=== PATIENT | male | born 1960 | race Caucasian/White ===

== ENCOUNTER → 2017-10-06 | Outpatient (CLI) | payer OTHER ==
[~2017-10-06] MED LIST: ADAL40KI SC; BACL-19 PO; CETI10TA24 PO; FOLI-17 PO; LEVO112T4 PO; LEVO25TA2 PO; LORA-446 PO; LOSA1TAB19 PO; OMEP-110 PO; OXYC1TAB7 PO; PREG75CA PO; SERT25TA PO; THIA100T10 PO
[2017-10-06 12:52] LABS: ALBUMIN 3.7 g/dL (3.4-5.0); BILIRUBIN, DIRECT 0.1 mg/dL (0.1-0.2)
[2017-10-06 12:58] LABS: BILIRUBIN,INDIRECT 0.4 mg/dL (0.0-2.0); BILIRUBIN,TOTAL 0.5 mg/dL (0.2-1.0); CHOL/HDL RATIO 5.2; LDL/HDL RATIO 3.4 (0.5-3.0); TOTAL PROTEIN 8.2 g/dL (6.4-8.2)
== END | disposition home or self-care (01) ==
LOC: CFH 07:04
PROVIDERS: ATTEND Physician Assistant
DX: K76.89 Other specified diseases of liver (principal); E03.9 Hypothyroidism, unspecified; L40.59 Other psoriatic arthropathy; G62.9 Polyneuropathy, unspecified; E55.9 Vitamin D deficiency, unspecified; K90.41 Non-celiac gluten sensitivity; K21.9 Gastro-esophageal reflux disease without esophagitis; M54.9 Dorsalgia, unspecified; M79.673 Pain in unspecified foot; R79.9 Abnormal finding of blood chemistry, unspecified; E78.5 Hyperlipidemia, unspecified; D69.8 Other specified hemorrhagic conditions
CPT/HCPCS: 36415; 76700; 80061; 80076; 82105; 82390; 82728; 83540; 83550; 84466; 86704; 86706; 86708; 86803; 87340

== ENCOUNTER 2018-08-18 14:14 | Inpatient (IN) | payer OTHER ==
[~2018-08-18] VITALS: Ht 190.5 cm; Wt 75.1 kg
[~2018-08-18 14:14] MED LIST changes: +OMEP20TA62 PO; +TAMS-11 PO; +THIA100T67 PO; +THYR15TA PO; +THYR30TA PO
[2018-08-19] MEDS ORDERED: OXYcodone IR 5MG TABLET PO ONE (00:50)
[2018-08-19 01:08] VITALS: BP 108/77
[2018-08-19] MEDS ORDERED: hydrALAzine 20 MG/ML, 1ML IVPush PRN (01:30)
[2018-08-19] MEDS ORDERED: MELATONIN 3 MG TABLET PO ONE (02:00)
[2018-08-19] MEDS: PANTOPRAZOLE 20MG TABLET PO SCH (05:57)
[2018-08-19] MEDS: LEVOTHYROXINE 25 MCG TABLET PO SCH (05:57)
[2018-08-19 07:40] VITALS: BP 125/86
[2018-08-19] MEDS: THIAMINE 100MG TABLET PO SCH (08:31)
[2018-08-19] MEDS: TAMSULOSIN 0.4 MG CAP.ER.24H PO SCH (08:31)
[2018-08-19] MEDS: ENOXAPARIN 40 MG/0.4 ML SQ SCH (08:32)
[2018-08-19] MEDS: BENZTROPINE 1 MG TABLET PO SCH ×2 (08:32→22:04)
[2018-08-19] MEDS ORDERED: OXYcodone/APAP 5/325MG TABLET PO SCH ×2 (09:00→21:00)
[2018-08-19 15:14] VITALS: BP 115/78
[2018-08-19] MEDS ORDERED: MAGNESIUM CITRATE 300ML ORAL SOL PO PRN (16:30)
[2018-08-19] MEDS: BISACODYL 10 MG SUPP PR PRN (16:45)
[2018-08-19] MEDS: OXYcodone/APAP 5/325MG TABLET PO PRN ×2 (16:45→22:05)
[2018-08-19] MEDS: POLYETHYLENE GLYCOL 17 GM PACKET PO PRN (16:45)
[2018-08-19 18:26] VITALS: BP 106/75
[2018-08-19] MEDS: MELATONIN 3 MG TABLET PO SCH (22:04)
[2018-08-20 00:37] VITALS: BP 119/76
[2018-08-20] MEDS: PANTOPRAZOLE 20MG TABLET PO SCH (05:52)
[2018-08-20] MEDS: LEVOTHYROXINE 25 MCG TABLET PO SCH (05:53)
[2018-08-20 05:57] LABS: MEAN CORPUSCULAR HEMOGLOBIN 34.8 pg (27.5-34.5); MEAN CORPUSCULAR HGB CONC 34.4 g/dL (33.2-36.2); MEAN CORPUSCULAR VOLUME 101.2 fL (81-97); MEAN PLATELET VOLUME 12.1 fL (7.4-10.4); PLATELET COUNT 218 x10^3/uL (130-400); RED BLOOD COUNT 3.94 x10^6/uL (4.38-5.82)
[2018-08-20 05:59] LABS: ALANINE AMINOTRANSFERASE 68 U/L (12-78); ANION GAP 8 mmol/L (5-15); CALCIUM 9.2 mg/dL (8.5-10.1); CHLORIDE 112 mmol/L (98-107)
[2018-08-20 06:02] LABS: ALKALINE PHOSPHATASE 89 U/L (45-117); BILIRUBIN,TOTAL 1.5 mg/dL (0.2-1.0); CREATININE 0.92 mg/dL (0.7-1.3); TOTAL PROTEIN 9.2 g/dL (6.4-8.2)
[2018-08-20 06:26] LABS: BASOPHILS # (AUTO) 0.01 x10^3/uL (0-0.1); BASOPHILS % (AUTO) 0 % (0-1); EOSINOPHILS # (AUTO) 0.15 x10^3/uL (0-0.4); EOSINOPHILS % (AUTO) 1 % (1-7); LYMPHOCYTES # (AUTO) 1.28 x10^3/uL (1-3.4); LYMPHOCYTES % (AUTO) 12 % (22-44); MD SCAN; MONOCYTES # (AUTO) 1.51 x10^3/uL (0.2-0.8); MONOCYTES % (AUTO) 14 % (2-9); NEUTROPHILS # (AUTO) 8.19 x10^3/uL (1.8-6.8); NEUTROPHILS % (AUTO) 74 % (42-75)
[2018-08-20 07:19] VITALS: BP 109/74
[2018-08-20 09:09] LABS: FOLATE LEVEL 7.4 ng/mL (3.1-17.5)
[2018-08-20 09:22] LABS: FREE T4 (FREE THYROXINE) 1.48 ng/dL (0.76-1.46)
[2018-08-20] MEDS: THIAMINE 100MG TABLET PO SCH (10:08)
[2018-08-20] MEDS: TAMSULOSIN 0.4 MG CAP.ER.24H PO SCH (10:08)
[2018-08-20] MEDS: BENZTROPINE 1 MG TABLET PO SCH ×2 (10:08→21:45)
[2018-08-20] MEDS: ENOXAPARIN 40 MG/0.4 ML SQ SCH (10:08)
[2018-08-20 14:24] VITALS: BP 116/87
[2018-08-20] MEDS: OXYcodone/APAP 5/325MG TABLET PO PRN (17:58)
[2018-08-20 19:55] VITALS: BP 133/84
[2018-08-20] MEDS: MELATONIN 3 MG TABLET PO SCH (21:45)
[2018-08-21 01:25] VITALS: BP 162/72
[2018-08-21] MEDS: OXYcodone/APAP 5/325MG TABLET PO PRN ×2 (04:52→16:47)
[2018-08-21] MEDS: PANTOPRAZOLE 20MG TABLET PO SCH (04:52)
[2018-08-21] MEDS: LEVOTHYROXINE 25 MCG TABLET PO SCH (04:52)
[2018-08-21 06:49] VITALS: BP 118/76
[2018-08-21] MEDS: D5%-0.9% NACL+KCL 20MEQ 1,000 ML IV SCH ×2 (09:38→19:58)
[2018-08-21] MEDS: ENOXAPARIN 40 MG/0.4 ML SQ SCH (09:38)
[2018-08-21] MEDS: THIAMINE 100MG TABLET PO SCH (09:39)
[2018-08-21] MEDS: TAMSULOSIN 0.4 MG CAP.ER.24H PO SCH (09:39)
[2018-08-21] MEDS: BENZTROPINE 1 MG TABLET PO SCH ×2 (09:39→19:59)
[2018-08-21 12:27] VITALS: BP 113/80
[2018-08-21] MEDS ORDERED: KETOROLAC 30 MG/1 ML ONE (12:59)
[2018-08-21] MEDS: KETOROLAC 30 MG/1 ML IVPush PRN ×2 (13:01→19:58)
[2018-08-21 16:48] VITALS: BP 113/80
[2018-08-21 19:19] VITALS: BP 102/71
[2018-08-21] MEDS: MELATONIN 3 MG TABLET PO SCH (19:59)
[2018-08-22] MEDS ORDERED: LORazepam 2 MG/ML, 1ML ONE (00:24)
[2018-08-22] MEDS ORDERED: LORazepam 2 MG/ML, 1ML IVPush ONE (00:30)
[2018-08-22] MEDS: KETOROLAC 30 MG/1 ML IVPush PRN ×3 (02:29→19:42)
[2018-08-22 03:03] VITALS: BP 110/74
[2018-08-22] MEDS: OXYcodone/APAP 5/325MG TABLET PO PRN ×2 (04:16→16:19)
[2018-08-22] MEDS: D5%-0.9% NACL+KCL 20MEQ 1,000 ML IV SCH ×2 (05:34→16:19)
[2018-08-22 07:17] VITALS: BP 112/73
[2018-08-22] MEDS: LEVOTHYROXINE 50 MCG TABLET PO SCH (08:50)
[2018-08-22] MEDS: TAMSULOSIN 0.4 MG CAP.ER.24H PO SCH (08:50)
[2018-08-22] MEDS: THIAMINE 100MG TABLET PO SCH (08:50)
[2018-08-22] MEDS: BENZTROPINE 1 MG TABLET PO SCH ×2 (08:50→19:43)
[2018-08-22] MEDS: PANTOPRAZOLE 20MG TABLET PO SCH (08:50)
[2018-08-22] MEDS: ENOXAPARIN 40 MG/0.4 ML SQ SCH (08:56)
[2018-08-22] MEDS: LORazepam 2 MG/ML, 1ML IVPush PRN ×2 (13:02→23:05)
[2018-08-22 13:52] VITALS: BP 162/77
[2018-08-22] MEDS: PLEASE ENTER HEIGHT AND WEIGHT MC SCH ×2 (14:56→19:43)
[2018-08-22] MEDS: MELATONIN 3 MG TABLET PO SCH (19:43)
[2018-08-22 19:55] VITALS: BP 155/73
[2018-08-23] MEDS: D5%-0.9% NACL+KCL 20MEQ 1,000 ML IV SCH ×3 (01:06→22:58)
[2018-08-23] MEDS: KETOROLAC 30 MG/1 ML IVPush PRN ×3 (01:06→21:57)
[2018-08-23 01:52] VITALS: BP 148/98
[2018-08-23] MEDS: OXYcodone/APAP 5/325MG TABLET PO PRN ×2 (03:05→15:20)
[2018-08-23 04:56] LABS: MEAN CORPUSCULAR HEMOGLOBIN 34.3 pg (27.5-34.5); MEAN CORPUSCULAR HGB CONC 33.5 g/dL (33.2-36.2); MEAN CORPUSCULAR VOLUME 102.5 fL (81-97); RED CELL DISTRIBUTION WIDTH 15.6 % (9.4-14.8)
[2018-08-23 04:58] LABS: ALBUMIN 2.2 g/dL (3.4-5.0); ANION GAP 8 mmol/L (5-15); CALCIUM 8.1 mg/dL (8.5-10.1); CHLORIDE 116 mmol/L (98-107); CREATININE 0.68 mg/dL (0.7-1.3)
[2018-08-23] MEDS: PANTOPRAZOLE 20MG TABLET PO SCH (05:22)
[2018-08-23] MEDS: LEVOTHYROXINE 50 MCG TABLET PO SCH (05:22)
[2018-08-23 06:07] LABS: MEAN PLATELET VOLUME 12.7 fL (7.4-10.4); PLATELET COUNT 158 x10^3/uL (130-400)
[2018-08-23 06:09] LABS: BASOPHILS # (AUTO) 0.02 x10^3/uL (0-0.1); BASOPHILS % (AUTO) 0 % (0-1); EOSINOPHILS # (AUTO) 0.46 x10^3/uL (0-0.4); EOSINOPHILS % (AUTO) 6 % (1-7); LYMPHOCYTES # (AUTO) 1.38 x10^3/uL (1-3.4); LYMPHOCYTES % (AUTO) 19 % (22-44); MD SCAN; MONOCYTES # (AUTO) 0.86 x10^3/uL (0.2-0.8); MONOCYTES % (AUTO) 12 % (2-9); NEUTROPHILS # (AUTO) 4.59 x10^3/uL (1.8-6.8); NEUTROPHILS % (AUTO) 63 % (42-75)
[2018-08-23] MEDS: PLEASE ENTER HEIGHT AND WEIGHT MC SCH ×2 (07:00→15:00)
[2018-08-23 07:21] VITALS: BP 148/96
[2018-08-23] MEDS ORDERED: MAGNESIUM SULF. PMX 20GM/500ML 500 ML IV PRN (08:00)
[2018-08-23] MEDS: TAMSULOSIN 0.4 MG CAP.ER.24H PO SCH (08:57)
[2018-08-23] MEDS: ENOXAPARIN 40 MG/0.4 ML SQ SCH (08:57)
[2018-08-23] MEDS: THIAMINE 100MG TABLET PO SCH (08:57)
[2018-08-23] MEDS ORDERED: MAGNESIUM SULFATE PMX 2GM/50ML 50 ML IV ONE (09:30)
[2018-08-23] MEDS: LORazepam 2 MG/ML, 1ML IVPush PRN ×2 (12:12→22:58)
[2018-08-23 14:00] VITALS: BP 128/87
[2018-08-23 19:41] VITALS: BP 134/95
[2018-08-23] MEDS: MELATONIN 3 MG TABLET PO SCH (20:11)
[2018-08-24 02:29] VITALS: BP 149/92
[2018-08-24] MEDS: OXYcodone/APAP 5/325MG TABLET PO PRN ×2 (03:24→20:00)
[2018-08-24] MEDS: PANTOPRAZOLE 20MG TABLET PO SCH (06:14)
[2018-08-24] MEDS: KETOROLAC 30 MG/1 ML IVPush PRN ×3 (06:14→22:21)
[2018-08-24] MEDS: LEVOTHYROXINE 50 MCG TABLET PO SCH (06:14)
[2018-08-24 07:05] VITALS: BP 145/91
[2018-08-24] MEDS: THIAMINE 100MG TABLET PO SCH (09:24)
[2018-08-24] MEDS: TAMSULOSIN 0.4 MG CAP.ER.24H PO SCH (09:24)
[2018-08-24] MEDS: ENOXAPARIN 40 MG/0.4 ML SQ SCH (09:25)
[2018-08-24] MEDS: LORazepam 2 MG/ML, 1ML IVPush PRN (10:12)
[2018-08-24] MEDS: D5%-0.9% NACL+KCL 20MEQ 1,000 ML IV SCH ×2 (11:28→21:22)
[2018-08-24 12:59] VITALS: BP 127/88
[2018-08-24 19:36] VITALS: BP 108/69
[2018-08-24] MEDS: MELATONIN 3 MG TABLET PO SCH (19:56)
[2018-08-25] MEDS: LORazepam 2 MG/ML, 1ML IVPush PRN ×2 (00:04→15:45)
[2018-08-25 01:10] VITALS: BP 166/69
[2018-08-25] MEDS: KETOROLAC 30 MG/1 ML IVPush PRN ×2 (04:36→13:08)
[2018-08-25] MEDS: LEVOTHYROXINE 50 MCG TABLET PO SCH (05:29)
[2018-08-25] MEDS: PANTOPRAZOLE 20MG TABLET PO SCH (05:30)
[2018-08-25] MEDS ORDERED: MAGNESIUM SULFATE PMX 2GM/50ML 50 ML IV ONE (07:00)
[2018-08-25 07:18] VITALS: BP 147/95
[2018-08-25] MEDS: ENOXAPARIN 40 MG/0.4 ML SQ SCH (08:00)
[2018-08-25] MEDS: OXYcodone/APAP 5/325MG TABLET PO PRN ×2 (08:00→19:27)
[2018-08-25] MEDS: THIAMINE 100MG TABLET PO SCH (08:00)
[2018-08-25] MEDS: TAMSULOSIN 0.4 MG CAP.ER.24H PO SCH (08:00)
[2018-08-25] MEDS: D5%-0.9% NACL+KCL 20MEQ 1,000 ML IV SCH ×2 (08:00→18:03)
[2018-08-25 12:59] VITALS: BP 141/95
[2018-08-25 19:10] VITALS: BP 132/90
[2018-08-25] MEDS: MELATONIN 3 MG TABLET PO SCH (19:28)
[2018-08-25] MEDS ORDERED: ZIPRASIDONE 20 MG INJ IM ONE (20:00)
[2018-08-26 02:46] VITALS: BP 168/76
[2018-08-26] MEDS: PANTOPRAZOLE 20MG TABLET PO SCH (04:37)
[2018-08-26] MEDS: D5%-0.9% NACL+KCL 20MEQ 1,000 ML IV SCH ×2 (04:37→16:41)
[2018-08-26] MEDS: LEVOTHYROXINE 50 MCG TABLET PO SCH (04:38)
[2018-08-26] MEDS: KETOROLAC 30 MG/1 ML IVPush PRN (04:38)
[2018-08-26 05:14] LABS: ANION GAP 7 mmol/L (5-15); CALCIUM 8.5 mg/dL (8.5-10.1); CHLORIDE 109 mmol/L (98-107); CREATININE 0.64 mg/dL (0.7-1.3)
[2018-08-26 05:53] LABS: BASOPHILS # (AUTO) 0.04 x10^3/uL (0-0.1); BASOPHILS % (AUTO) 1 % (0-1); EOSINOPHILS % (AUTO) 4 % (1-7); LYMPHOCYTES # (AUTO) 1.21 x10^3/uL (1-3.4); LYMPHOCYTES % (AUTO) 16 % (22-44); MD SCAN; MEAN CORPUSCULAR HEMOGLOBIN 34.5 pg (27.5-34.5); MEAN CORPUSCULAR HGB CONC 34.4 g/dL (33.2-36.2); MEAN CORPUSCULAR VOLUME 100.5 fL (81-97); MEAN PLATELET VOLUME 12.1 fL (7.4-10.4); MONOCYTES # (AUTO) 0.59 x10^3/uL (0.2-0.8); MONOCYTES % (AUTO) 8 % (2-9); NEUTROPHILS % (AUTO) 72 % (42-75); PLATELET COUNT 145 x10^3/uL (130-400); RED BLOOD COUNT 3.71 x10^6/uL (4.38-5.82); RED CELL DISTRIBUTION WIDTH 15.4 % (9.4-14.8)
[2018-08-26 07:07] VITALS: BP 107/75
[2018-08-26] MEDS: TAMSULOSIN 0.4 MG CAP.ER.24H PO SCH (08:30)
[2018-08-26] MEDS: OXYcodone/APAP 5/325MG TABLET PO PRN ×2 (08:30→20:56)
[2018-08-26] MEDS: ENOXAPARIN 40 MG/0.4 ML SQ SCH (08:30)
[2018-08-26] MEDS: THIAMINE 100MG TABLET PO SCH (08:30)
[2018-08-26 13:48] VITALS: BP 100/69
[2018-08-26] MEDS: BISACODYL 10 MG SUPP PR PRN (14:41)
[2018-08-26] MEDS: FLUTICASONE NASAL SPRAY 16GM NAS SCH ×2 (14:41→20:56)
[2018-08-26] MEDS: IBUPROFEN 200 MG TABLET PO PRN (16:26)
[2018-08-26] MEDS: HYDROmorphone 2 MG/ML, 1ML IVPush PRN (16:41)
[2018-08-26 20:46] VITALS: BP 125/68
[2018-08-26] MEDS: MELATONIN 3 MG TABLET PO SCH (20:56)
[2018-08-27 01:00] VITALS: BP 153/98
[2018-08-27] MEDS: HYDROmorphone 2 MG/ML, 1ML IVPush PRN ×5 (02:56→23:55)
[2018-08-27] MEDS: D5%-0.9% NACL+KCL 20MEQ 1,000 ML IV SCH ×2 (03:36→15:33)
[2018-08-27] MEDS: OXYcodone/APAP 5/325MG TABLET PO PRN ×3 (04:17→21:25)
[2018-08-27] MEDS: PANTOPRAZOLE 20MG TABLET PO SCH (05:37)
[2018-08-27] MEDS: LEVOTHYROXINE 50 MCG TABLET PO SCH (05:37)
[2018-08-27 06:55] VITALS: BP 116/74
[2018-08-27] MEDS ORDERED: MAGNESIUM SULFATE PMX 2GM/50ML 50 ML IV ONE (07:00)
[2018-08-27] MEDS ORDERED: POLYETHYLENE GLYCOL 17 GM PACKET PO SCH (09:00)
[2018-08-27] MEDS: FLUTICASONE NASAL SPRAY 16GM NAS SCH ×2 (09:00→20:09)
[2018-08-27] MEDS: THIAMINE 100MG TABLET PO SCH (09:20)
[2018-08-27] MEDS: ENOXAPARIN 40 MG/0.4 ML SQ SCH (09:20)
[2018-08-27] MEDS: TAMSULOSIN 0.4 MG CAP.ER.24H PO SCH (09:20)
[2018-08-27] MEDS ORDERED: PINK LADY ENEMA 490 ML BOTTLE PR ONE (10:30)
[2018-08-27] MEDS: POLYETHYLENE GLYCOL 17 GM PACKET PO SCH ×3 (11:25→19:58)
[2018-08-27 12:45] VITALS: BP 104/57
[2018-08-27 19:40] VITALS: BP 93/58
[2018-08-27] MEDS: MELATONIN 3 MG TABLET PO SCH (19:57)
[2018-08-28 00:08] VITALS: BP 112/82
[2018-08-28] MEDS: D5%-0.9% NACL+KCL 20MEQ 1,000 ML IV SCH ×3 (01:34→23:55)
[2018-08-28] MEDS: HYDROmorphone 2 MG/ML, 1ML IVPush PRN ×4 (04:04→22:59)
[2018-08-28] MEDS: PANTOPRAZOLE 20MG TABLET PO SCH (05:45)
[2018-08-28] MEDS: LEVOTHYROXINE 50 MCG TABLET PO SCH (05:45)
[2018-08-28 06:59] VITALS: BP 147/98
[2018-08-28] MEDS: FLUTICASONE NASAL SPRAY 16GM NAS SCH ×2 (09:00→21:26)
[2018-08-28] MEDS: POLYETHYLENE GLYCOL 17 GM PACKET PO SCH ×3 (09:19→21:26)
[2018-08-28] MEDS: OXYcodone/APAP 5/325MG TABLET PO PRN ×2 (09:20→21:37)
[2018-08-28] MEDS: ENOXAPARIN 40 MG/0.4 ML SQ SCH (09:20)
[2018-08-28] MEDS: TAMSULOSIN 0.4 MG CAP.ER.24H PO SCH (09:20)
[2018-08-28] MEDS: THIAMINE 100MG TABLET PO SCH (09:20)
[2018-08-28 12:32] VITALS: BP 141/77
[2018-08-28 19:55] VITALS: BP 114/76
[2018-08-28] MEDS: DOCUSATE 100 MG CAPSULE PO SCH (21:26)
[2018-08-28] MEDS: MELATONIN 3 MG TABLET PO SCH (21:28)
[2018-08-29] VITALS (7 sets, daily range): BP systolic 109–136; BP diastolic 78–95
[2018-08-29] MEDS: PANTOPRAZOLE 20MG TABLET PO SCH (06:03)
[2018-08-29] MEDS: LEVOTHYROXINE 50 MCG TABLET PO SCH (06:04)
[2018-08-29 06:23] LABS: CREATININE 0.69 mg/dL (0.7-1.3)
[2018-08-29] MEDS: POLYETHYLENE GLYCOL 17 GM PACKET PO SCH ×3 (08:51→19:33)
[2018-08-29] MEDS: FLUTICASONE NASAL SPRAY 16GM NAS SCH ×2 (08:59→19:33)
[2018-08-29] MEDS: DOCUSATE 100 MG CAPSULE PO SCH ×2 (08:59→19:33)
[2018-08-29] MEDS: D5%-0.9% NACL+KCL 20MEQ 1,000 ML IV SCH ×2 (08:59→17:20)
[2018-08-29] MEDS: HYDROmorphone 2 MG/ML, 1ML IVPush PRN ×3 (08:59→21:41)
[2018-08-29] MEDS: ENOXAPARIN 40 MG/0.4 ML SQ SCH (08:59)
[2018-08-29] MEDS: THIAMINE 100MG TABLET PO SCH (08:59)
[2018-08-29] MEDS: TAMSULOSIN 0.4 MG CAP.ER.24H PO SCH (09:00)
[2018-08-29] MEDS: IMMUNE GLOBULIN IV SCH ×6 (17:28→23:18)
[2018-08-29] MEDS: OXYcodone IR 5MG TABLET PO PRN (18:13)
[2018-08-30] MEDS: OXYcodone IR 5MG TABLET PO PRN ×3 (00:26→20:33)
[2018-08-30 01:05] VITALS: BP 143/96
[2018-08-30] MEDS: D5%-0.9% NACL+KCL 20MEQ 1,000 ML IV SCH (02:49)
[2018-08-30] MEDS: HYDROmorphone 2 MG/ML, 1ML IVPush PRN ×4 (02:49→22:48)
[2018-08-30] MEDS: PANTOPRAZOLE 20MG TABLET PO SCH (06:11)
[2018-08-30] MEDS: LEVOTHYROXINE 50 MCG TABLET PO SCH (06:11)
[2018-08-30 06:57] VITALS: BP 134/88
[2018-08-30] MEDS: THIAMINE 100MG TABLET PO SCH (09:24)
[2018-08-30] MEDS: POLYETHYLENE GLYCOL 17 GM PACKET PO SCH ×3 (09:24→20:33)
[2018-08-30] MEDS: FLUTICASONE NASAL SPRAY 16GM NAS SCH ×2 (09:24→20:33)
[2018-08-30] MEDS: ENOXAPARIN 40 MG/0.4 ML SQ SCH (09:24)
[2018-08-30] MEDS: DOCUSATE 100 MG CAPSULE PO SCH ×2 (09:24→20:33)
[2018-08-30] MEDS: TAMSULOSIN 0.4 MG CAP.ER.24H PO SCH (09:24)
[2018-08-30 13:00] VITALS: BP 130/90
[2018-08-30] MEDS: IMMUNE GLOBULIN IV SCH (13:54)
[2018-08-30 19:35] VITALS: BP 148/83
[2018-08-31 01:02] VITALS: BP 138/90
[2018-08-31] MEDS: OXYcodone IR 5MG TABLET PO PRN (02:26)
[2018-08-31] MEDS: D5%-0.9% NACL+KCL 20MEQ 1,000 ML IV SCH ×2 (05:00→14:14)
[2018-08-31] MEDS: HYDROmorphone 2 MG/ML, 1ML IVPush PRN ×4 (05:00→20:43)
[2018-08-31] MEDS: PANTOPRAZOLE 20MG TABLET PO SCH (05:00)
[2018-08-31] MEDS: LEVOTHYROXINE 50 MCG TABLET PO SCH (05:00)
[2018-08-31 07:10] VITALS: BP 136/94
[2018-08-31] MEDS: DOCUSATE 100 MG CAPSULE PO SCH ×2 (09:00→20:16)
[2018-08-31] MEDS: POLYETHYLENE GLYCOL 17 GM PACKET PO SCH ×3 (09:00→20:16)
[2018-08-31] MEDS: ENOXAPARIN 40 MG/0.4 ML SQ SCH (09:18)
[2018-08-31] MEDS: TAMSULOSIN 0.4 MG CAP.ER.24H PO SCH (09:18)
[2018-08-31] MEDS: THIAMINE 100MG TABLET PO SCH (09:18)
[2018-08-31] MEDS: FLUTICASONE NASAL SPRAY 16GM NAS SCH ×2 (09:25→21:00)
[2018-08-31] MEDS: IMMUNE GLOBULIN IV SCH ×2 (13:00→16:24)
[2018-08-31 13:44] VITALS: BP 138/92
[2018-08-31 19:14] VITALS: BP 122/87
[2018-09-01] MEDS: OXYcodone IR 5MG TABLET PO PRN (00:19)
[2018-09-01 01:46] VITALS: BP 145/89
[2018-09-01] MEDS: D5%-0.9% NACL+KCL 20MEQ 1,000 ML IV SCH (02:18)
[2018-09-01 05:35] LABS: CREATININE 0.76 mg/dL (0.7-1.3)
[2018-09-01] MEDS: HYDROmorphone 2 MG/ML, 1ML IVPush PRN ×4 (05:48→23:34)
[2018-09-01] MEDS: LEVOTHYROXINE 50 MCG TABLET PO SCH ×2 (05:49→05:57)
[2018-09-01] MEDS: PANTOPRAZOLE 20MG TABLET PO SCH ×2 (05:49→05:56)
[2018-09-01 08:42] VITALS: BP 142/82
[2018-09-01] MEDS: THIAMINE 100MG TABLET PO SCH (09:44)
[2018-09-01] MEDS: POLYETHYLENE GLYCOL 17 GM PACKET PO SCH ×3 (09:44→23:35)
[2018-09-01] MEDS: DOCUSATE 100 MG CAPSULE PO SCH ×2 (09:44→23:35)
[2018-09-01] MEDS: TAMSULOSIN 0.4 MG CAP.ER.24H PO SCH (09:44)
[2018-09-01] MEDS: ENOXAPARIN 40 MG/0.4 ML SQ SCH (09:44)
[2018-09-01] MEDS: BACLOFEN 10 MG TABLET PO SCH ×2 (10:06→23:35)
[2018-09-01] MEDS: FLUTICASONE NASAL SPRAY 16GM NAS SCH ×2 (10:06→21:00)
[2018-09-01 14:42] VITALS: BP 139/78
[2018-09-01] MEDS: IMMUNE GLOBULIN IV SCH (15:37)
[2018-09-01 19:06] VITALS: BP 112/76
[2018-09-02 00:11] VITALS: BP 113/56
[2018-09-02] MEDS: HYDROmorphone 2 MG/ML, 1ML IVPush PRN ×4 (04:24→23:13)
[2018-09-02] MEDS: D5%-0.9% NACL+KCL 20MEQ 1,000 ML IV SCH ×2 (04:33→22:08)
[2018-09-02 08:01] VITALS: BP 116/63
[2018-09-02] MEDS: TAMSULOSIN 0.4 MG CAP.ER.24H PO SCH (08:15)
[2018-09-02] MEDS: PANTOPRAZOLE 20MG TABLET PO SCH (08:15)
[2018-09-02] MEDS: THIAMINE 100MG TABLET PO SCH (08:15)
[2018-09-02] MEDS: POLYETHYLENE GLYCOL 17 GM PACKET PO SCH ×4 (08:15→19:44)
[2018-09-02] MEDS: DOCUSATE 100 MG CAPSULE PO SCH ×2 (08:15→19:44)
[2018-09-02] MEDS: ENOXAPARIN 40 MG/0.4 ML SQ SCH (08:16)
[2018-09-02] MEDS: LEVOTHYROXINE 50 MCG TABLET PO SCH (08:16)
[2018-09-02] MEDS: BACLOFEN 10 MG TABLET PO SCH ×2 (08:16→19:44)
[2018-09-02] MEDS: FLUTICASONE NASAL SPRAY 16GM NAS SCH ×2 (08:16→21:00)
[2018-09-02] MEDS: IMMUNE GLOBULIN IV SCH (13:15)
[2018-09-02 13:32] VITALS: BP 93/63
[2018-09-02 20:17] VITALS: BP 120/81
[2018-09-03 02:00] VITALS: BP 114/70
[2018-09-03] MEDS: HYDROmorphone 2 MG/ML, 1ML IVPush PRN ×5 (03:21→23:07)
[2018-09-03] MEDS: LEVOTHYROXINE 50 MCG TABLET PO SCH (05:33)
[2018-09-03] MEDS: PANTOPRAZOLE 20MG TABLET PO SCH (05:33)
[2018-09-03 06:15] LABS: BASOPHILS # (AUTO) 0.09 x10^3/uL (0-0.1); BASOPHILS % (AUTO) 1 % (0-1); EOSINOPHILS # (AUTO) 0.62 x10^3/uL (0-0.4); EOSINOPHILS % (AUTO) 7 % (1-7); LYMPHOCYTES # (AUTO) 1.66 x10^3/uL (1-3.4); LYMPHOCYTES % (AUTO) 20 % (22-44); MD NO; MEAN CORPUSCULAR HGB CONC 33.8 g/dL (33.2-36.2); MEAN CORPUSCULAR VOLUME 100.8 fL (81-97); MEAN PLATELET VOLUME 10.1 fL (7.4-10.4); MONOCYTES # (AUTO) 0.99 x10^3/uL (0.2-0.8); MONOCYTES % (AUTO) 12 % (2-9); NEUTROPHILS # (AUTO) 5.15 x10^3/uL (1.8-6.8); NEUTROPHILS % (AUTO) 61 % (42-75); PLATELET COUNT 282 x10^3/uL (130-400); RED BLOOD COUNT 3.59 x10^6/uL (4.38-5.82)
[2018-09-03 06:17] LABS: CHLORIDE 106 mmol/L (98-107)
[2018-09-03 06:31] LABS: ALANINE AMINOTRANSFERASE 20 U/L (12-78); ALBUMIN 2.1 g/dL (3.4-5.0); ALKALINE PHOSPHATASE 75 U/L (45-117); ANION GAP 5 mmol/L (5-15); BILIRUBIN,TOTAL 0.6 mg/dL (0.2-1.0); CALCIUM 8.3 mg/dL (8.5-10.1); TOTAL PROTEIN 8.9 g/dL (6.4-8.2)
[2018-09-03 07:26] VITALS: BP 154/98
[2018-09-03] MEDS ORDERED: MAGNESIUM SULFATE PMX 2GM/50ML 50 ML IV ONE (07:30)
[2018-09-03] MEDS: BACLOFEN 10 MG TABLET PO SCH ×2 (09:11→21:40)
[2018-09-03] MEDS: DOCUSATE 100 MG CAPSULE PO SCH ×2 (09:11→21:40)
[2018-09-03] MEDS: FLUTICASONE NASAL SPRAY 16GM NAS SCH ×2 (09:11→21:40)
[2018-09-03] MEDS: TAMSULOSIN 0.4 MG CAP.ER.24H PO SCH (09:11)
[2018-09-03] MEDS: ENOXAPARIN 40 MG/0.4 ML SQ SCH (09:12)
[2018-09-03] MEDS: POLYETHYLENE GLYCOL 17 GM PACKET PO SCH ×3 (09:12→21:40)
[2018-09-03] MEDS: THIAMINE 100MG TABLET PO SCH (09:12)
[2018-09-03] MEDS: D5%-0.9% NACL+KCL 20MEQ 1,000 ML IV SCH ×2 (11:53→22:24)
[2018-09-03] MEDS: OXYcodone IR 5MG TABLET PO PRN ×2 (11:58→21:50)
[2018-09-03 13:32] VITALS: BP 126/84
[2018-09-03 18:58] VITALS: BP 88/56
[2018-09-03 19:33] VITALS: BP 113/77
[2018-09-04 00:12] VITALS: BP 136/95
[2018-09-04] MEDS: HYDROmorphone 2 MG/ML, 1ML IVPush PRN ×5 (03:08→21:00)
[2018-09-04] MEDS: OXYcodone IR 5MG TABLET PO PRN ×3 (04:27→19:17)
[2018-09-04] MEDS: PANTOPRAZOLE 20MG TABLET PO SCH (06:14)
[2018-09-04] MEDS: LEVOTHYROXINE 50 MCG TABLET PO SCH (06:14)
[2018-09-04 07:40] VITALS: BP 118/84
[2018-09-04 07:42] LABS: CREATININE 0.78 mg/dL (0.7-1.3)
[2018-09-04] MEDS: ENOXAPARIN 40 MG/0.4 ML SQ SCH (08:03)
[2018-09-04] MEDS: POLYETHYLENE GLYCOL 17 GM PACKET PO SCH ×3 (08:03→21:33)
[2018-09-04] MEDS: DOCUSATE 100 MG CAPSULE PO SCH ×2 (08:03→21:33)
[2018-09-04] MEDS: TAMSULOSIN 0.4 MG CAP.ER.24H PO SCH (08:04)
[2018-09-04] MEDS: BACLOFEN 10 MG TABLET PO SCH ×2 (08:04→21:34)
[2018-09-04] MEDS: THIAMINE 100MG TABLET PO SCH (08:04)
[2018-09-04] MEDS: D5%-0.9% NACL+KCL 20MEQ 1,000 ML IV SCH ×2 (08:17→17:47)
[2018-09-04] MEDS: FLUTICASONE NASAL SPRAY 16GM NAS SCH ×2 (08:17→22:00)
[2018-09-04] MEDS ORDERED: MAGNESIUM SULFATE PMX 2GM/50ML 50 ML IV ONE (15:00)
[2018-09-04 19:33] VITALS: BP 130/89
[2018-09-05 00:24] VITALS: BP 122/79
[2018-09-05] MEDS: HYDROmorphone 2 MG/ML, 1ML IVPush PRN ×6 (01:24→23:13)
[2018-09-05] MEDS: OXYcodone IR 5MG TABLET PO PRN ×3 (03:37→21:43)
[2018-09-05] MEDS: D5%-0.9% NACL+KCL 20MEQ 1,000 ML IV SCH ×2 (04:23→14:37)
[2018-09-05 06:35] VITALS: BP 120/82
[2018-09-05] MEDS ORDERED: MAGNESIUM SULFATE PMX 2GM/50ML 50 ML IV ONE (07:00)
[2018-09-05] MEDS: PANTOPRAZOLE 20MG TABLET PO SCH (07:17)
[2018-09-05] MEDS: LEVOTHYROXINE 50 MCG TABLET PO SCH (07:17)
[2018-09-05] MEDS: POLYETHYLENE GLYCOL 17 GM PACKET PO SCH ×3 (07:17→20:53)
[2018-09-05] MEDS: TAMSULOSIN 0.4 MG CAP.ER.24H PO SCH (07:38)
[2018-09-05] MEDS: FLUTICASONE NASAL SPRAY 16GM NAS SCH ×2 (07:38→20:53)
[2018-09-05] MEDS: ENOXAPARIN 40 MG/0.4 ML SQ SCH (07:38)
[2018-09-05] MEDS: DOCUSATE 100 MG CAPSULE PO SCH ×2 (07:38→20:53)
[2018-09-05] MEDS: THIAMINE 100MG TABLET PO SCH (07:38)
[2018-09-05] MEDS: BACLOFEN 10 MG TABLET PO SCH ×2 (07:38→20:50)
[2018-09-05 14:30] VITALS: BP 128/88
[2018-09-05 19:44] VITALS: BP 104/68
[2018-09-05] MEDS: IBUPROFEN 200 MG TABLET PO PRN (21:48)
[2018-09-05] MEDS ORDERED: LIDODERM 5% PATCH TD SCH (23:30)
[2018-09-06] MEDS: D5%-0.9% NACL+KCL 20MEQ 1,000 ML IV SCH ×2 (00:45→10:00)
[2018-09-06 01:13] VITALS: BP 118/79
[2018-09-06] MEDS: HYDROmorphone 2 MG/ML, 1ML IVPush PRN ×4 (03:24→20:40)
[2018-09-06] MEDS: OXYcodone IR 5MG TABLET PO PRN ×3 (05:36→19:09)
[2018-09-06] MEDS: PANTOPRAZOLE 20MG TABLET PO SCH (05:36)
[2018-09-06] MEDS: LEVOTHYROXINE 50 MCG TABLET PO SCH (05:36)
[2018-09-06 07:52] VITALS: BP 145/96
[2018-09-06] MEDS: POLYETHYLENE GLYCOL 17 GM PACKET PO SCH ×3 (08:20→20:31)
[2018-09-06] MEDS: DOCUSATE 100 MG CAPSULE PO SCH ×2 (08:20→20:31)
[2018-09-06] MEDS: BACLOFEN 10 MG TABLET PO SCH ×2 (08:20→20:31)
[2018-09-06] MEDS: ENOXAPARIN 40 MG/0.4 ML SQ SCH (08:20)
[2018-09-06] MEDS: TAMSULOSIN 0.4 MG CAP.ER.24H PO SCH (08:20)
[2018-09-06] MEDS: FLUTICASONE NASAL SPRAY 16GM NAS SCH (08:21)
[2018-09-06] MEDS: THIAMINE 100MG TABLET PO SCH (08:28)
[2018-09-06] MEDS: MAGNESIUM OXIDE 400 MG TABLET PO SCH ×2 (10:49→20:31)
--- NOTE | 2018-09-06 13:09 | NUR ---
REC: GROUND DIET WITH THIN LIQUIDS WITH 1:1 ASSIST FOR MEALS Addendum: 09/06/18 at 1310 by Saranya JAMES Amended: Links added.
[2018-09-06 13:13] VITALS: BP 118/85
[2018-09-06 18:49] VITALS: BP 108/77
[2018-09-07] MEDS: FLUTICASONE NASAL SPRAY 16GM NAS SCH ×3 (00:30→21:40)
[2018-09-07] MEDS: HYDROmorphone 2 MG/ML, 1ML IVPush PRN ×6 (00:30→23:58)
[2018-09-07] MEDS: D5%-0.9% NACL+KCL 20MEQ 1,000 ML IV SCH ×2 (00:31→10:30)
[2018-09-07 00:42] VITALS: BP 116/78
[2018-09-07 04:51] LABS: CREATININE 0.73 mg/dL (0.7-1.3)
[2018-09-07] MEDS: PANTOPRAZOLE 20MG TABLET PO SCH (05:06)
[2018-09-07] MEDS: LEVOTHYROXINE 50 MCG TABLET PO SCH (05:06)
[2018-09-07] MEDS: OXYcodone IR 5MG TABLET PO PRN ×2 (06:37→21:44)
[2018-09-07 06:49] VITALS: BP 148/81
[2018-09-07] MEDS: THIAMINE 100MG TABLET PO SCH (09:00)
[2018-09-07] MEDS: DOCUSATE 100 MG CAPSULE PO SCH ×2 (10:55→21:39)
[2018-09-07] MEDS: ENOXAPARIN 40 MG/0.4 ML SQ SCH (10:55)
[2018-09-07] MEDS: POLYETHYLENE GLYCOL 17 GM PACKET PO SCH ×3 (10:55→21:38)
[2018-09-07] MEDS: BACLOFEN 10 MG TABLET PO SCH ×2 (10:55→21:37)
[2018-09-07] MEDS: TAMSULOSIN 0.4 MG CAP.ER.24H PO SCH (10:55)
[2018-09-07] MEDS: MAGNESIUM OXIDE 400 MG TABLET PO SCH ×2 (10:56→21:36)
[2018-09-07 13:31] VITALS: BP 133/98
[2018-09-07 19:21] VITALS: BP 131/93
[2018-09-08 03:55] VITALS: BP 130/92
[2018-09-08] MEDS: HYDROmorphone 2 MG/ML, 1ML IVPush PRN ×5 (04:02→23:13)
[2018-09-08] MEDS: PANTOPRAZOLE 20MG TABLET PO SCH (06:00)
[2018-09-08] MEDS: METOPROLOL TARTRATE 25 MG TABLET PO SCH ×2 (07:30→18:36)
[2018-09-08 07:32] VITALS: BP 146/99
[2018-09-08] MEDS: LEVOTHYROXINE 50 MCG TABLET PO SCH (08:17)
[2018-09-08] MEDS: BACLOFEN 10 MG TABLET PO SCH ×2 (08:17→21:00)
[2018-09-08] MEDS: DOCUSATE 100 MG CAPSULE PO SCH ×2 (08:18→21:00)
[2018-09-08] MEDS: POLYETHYLENE GLYCOL 17 GM PACKET PO SCH ×3 (08:18→21:00)
[2018-09-08] MEDS: MAGNESIUM OXIDE 400 MG TABLET PO SCH ×2 (08:18→21:00)
[2018-09-08] MEDS: TAMSULOSIN 0.4 MG CAP.ER.24H PO SCH (08:18)
[2018-09-08] MEDS: FLUTICASONE NASAL SPRAY 16GM NAS SCH ×2 (08:25→21:08)
[2018-09-08] MEDS: THIAMINE 100MG TABLET PO SCH (13:32)
[2018-09-08] MEDS: ENOXAPARIN 40 MG/0.4 ML SQ SCH (13:33)
--- NOTE | 2018-09-08 13:51 | NUR ---
REC: Chopped diet with thin liquids Addendum: 09/08/18 at 1352 by Saranya JAMES Amended: Links added.
[2018-09-08 13:55] VITALS: BP 140/61
[2018-09-08 15:25] LABS: ANION GAP 7 mmol/L (5-15); CALCIUM 9.4 mg/dL (8.5-10.1); CHLORIDE 102 mmol/L (98-107); CREATININE 0.76 mg/dL (0.7-1.3)
[2018-09-08] MEDS: D5%-0.9% NACL+KCL 20MEQ 1,000 ML IV SCH (15:51)
[2018-09-08 20:17] VITALS: BP 144/95
[2018-09-08] MEDS ORDERED: QUETIAPINE 25MG TABLET PO SCH (21:00)
[2018-09-09 01:00] VITALS: BP 106/77
[2018-09-09] MEDS: D5%-0.9% NACL+KCL 20MEQ 1,000 ML IV SCH ×3 (01:38→18:29)
[2018-09-09] MEDS: HYDROmorphone 2 MG/ML, 1ML IVPush PRN ×5 (03:58→22:37)
[2018-09-09 08:20] VITALS: BP 140/93
[2018-09-09] MEDS: BACLOFEN 10 MG TABLET PO SCH ×2 (08:54→21:22)
[2018-09-09] MEDS: MAGNESIUM OXIDE 400 MG TABLET PO SCH ×2 (08:54→21:23)
[2018-09-09] MEDS: POLYETHYLENE GLYCOL 17 GM PACKET PO SCH ×3 (08:54→21:23)
[2018-09-09] MEDS: FLUTICASONE NASAL SPRAY 16GM NAS SCH ×2 (08:54→22:11)
[2018-09-09] MEDS: DOCUSATE 100 MG CAPSULE PO SCH ×2 (08:55→21:23)
[2018-09-09] MEDS: PANTOPRAZOLE 20MG TABLET PO SCH (08:55)
[2018-09-09] MEDS: METOPROLOL TARTRATE 25 MG TABLET PO SCH ×3 (08:56→18:29)
[2018-09-09] MEDS: THIAMINE 100MG TABLET PO SCH (08:56)
[2018-09-09] MEDS: LEVOTHYROXINE 50 MCG TABLET PO SCH (08:56)
[2018-09-09] MEDS: TAMSULOSIN 0.4 MG CAP.ER.24H PO SCH (08:56)
[2018-09-09] MEDS: ENOXAPARIN 40 MG/0.4 ML SQ SCH (08:57)
[2018-09-09 12:20] VITALS: BP 101/71
[2018-09-09 13:09] LABS: MICROSCOPIC INDICATED
[2018-09-09 13:13] LABS: CULTURE INDICATED? YES
[2018-09-09 20:41] VITALS: BP 135/84
[2018-09-09] MEDS: QUETIAPINE 25MG TABLET PO SCH (21:23)
[2018-09-09] MEDS: CEFTRIAXONE PMX 1GM/50ML 50 ML IV SCH (21:33)
[2018-09-10] MEDS: D5%-0.9% NACL+KCL 20MEQ 1,000 ML IV SCH ×3 (00:49→17:32)
[2018-09-10 00:55] VITALS: BP 115/79
[2018-09-10] MEDS: HYDROmorphone 2 MG/ML, 1ML IVPush PRN ×5 (02:40→23:36)
[2018-09-10] MEDS: OXYcodone IR 5MG TABLET PO PRN ×2 (04:53→20:35)
[2018-09-10 05:05] LABS: BASOPHILS # (AUTO) 0.11 x10^3/uL (0-0.1); BASOPHILS % (AUTO) 1 % (0-1); EOSINOPHILS # (AUTO) 0.55 x10^3/uL (0-0.4); EOSINOPHILS % (AUTO) 6 % (1-7); LYMPHOCYTES # (AUTO) 1.79 x10^3/uL (1-3.4); LYMPHOCYTES % (AUTO) 21 % (22-44); MD NO; MEAN CORPUSCULAR HEMOGLOBIN 33.5 pg (27.5-34.5); MEAN CORPUSCULAR HGB CONC 33.8 g/dL (33.2-36.2); MEAN CORPUSCULAR VOLUME 99.1 fL (81-97); MEAN PLATELET VOLUME 10.5 fL (7.4-10.4); MONOCYTES % (AUTO) 12 % (2-9); NEUTROPHILS # (AUTO) 5.26 x10^3/uL (1.8-6.8); NEUTROPHILS % (AUTO) 60 % (42-75); PLATELET COUNT 185 x10^3/uL (130-400); RED BLOOD COUNT 3.99 x10^6/uL (4.38-5.82); RED CELL DISTRIBUTION WIDTH 14.3 % (9.4-14.8)
[2018-09-10 05:09] LABS: ALANINE AMINOTRANSFERASE 18 U/L (12-78); ALBUMIN 2.3 g/dL (3.4-5.0); ANION GAP 5 mmol/L (5-15); CALCIUM 9.2 mg/dL (8.5-10.1); CHLORIDE 110 mmol/L (98-107); CREATININE 0.63 mg/dL (0.7-1.3)
[2018-09-10 05:11] LABS: ALKALINE PHOSPHATASE 71 U/L (45-117); BILIRUBIN,TOTAL 0.5 mg/dL (0.2-1.0)
[2018-09-10] MEDS ORDERED: MAGNESIUM SULFATE PMX 2GM/50ML 50 ML IV ONE (07:00)
[2018-09-10 07:18] VITALS: BP 150/93
[2018-09-10] MEDS: ENOXAPARIN 40 MG/0.4 ML SQ SCH (08:06)
[2018-09-10] MEDS: THIAMINE 100MG TABLET PO SCH (08:06)
[2018-09-10] MEDS: TAMSULOSIN 0.4 MG CAP.ER.24H PO SCH (08:06)
[2018-09-10] MEDS: PANTOPRAZOLE 20MG TABLET PO SCH (08:06)
[2018-09-10] MEDS: METOPROLOL TARTRATE 25 MG TABLET PO SCH ×2 (08:06→17:33)
[2018-09-10] MEDS: DOCUSATE 100 MG CAPSULE PO SCH ×2 (08:07→20:35)
[2018-09-10] MEDS: BACLOFEN 10 MG TABLET PO SCH ×2 (08:07→20:35)
[2018-09-10] MEDS: MAGNESIUM OXIDE 400 MG TABLET PO SCH ×2 (08:07→20:36)
[2018-09-10] MEDS: LEVOTHYROXINE 50 MCG TABLET PO SCH (08:07)
[2018-09-10] MEDS: FLUTICASONE NASAL SPRAY 16GM NAS SCH ×2 (09:00→20:34)
[2018-09-10] MEDS: POLYETHYLENE GLYCOL 17 GM PACKET PO SCH ×3 (09:00→20:35)
[2018-09-10 14:24] VITALS: BP 117/82
[2018-09-10 19:38] VITALS: BP 93/70
[2018-09-10] MEDS: QUETIAPINE 25MG TABLET PO SCH (20:35)
[2018-09-10] MEDS: CEFTRIAXONE PMX 1GM/50ML 50 ML IV SCH (21:27)
[2018-09-11] MEDS: D5%-0.9% NACL+KCL 20MEQ 1,000 ML IV SCH ×3 (01:10→17:36)
[2018-09-11] MEDS: OXYcodone IR 5MG TABLET PO PRN ×3 (02:36→20:33)
[2018-09-11 02:38] VITALS: BP 129/81
[2018-09-11] MEDS: HYDROmorphone 2 MG/ML, 1ML IVPush PRN ×5 (03:37→21:42)
[2018-09-11] MEDS: METOPROLOL TARTRATE 25 MG TABLET PO SCH ×2 (05:27→17:36)
[2018-09-11] MEDS: LEVOTHYROXINE 50 MCG TABLET PO SCH (05:27)
[2018-09-11] MEDS: PANTOPRAZOLE 20MG TABLET PO SCH (05:27)
[2018-09-11 07:20] VITALS: BP 136/96
[2018-09-11] MEDS ORDERED: MAGNESIUM SULFATE PMX 2GM/50ML 50 ML IV ONE (07:30)
[2018-09-11] MEDS: DOCUSATE 100 MG CAPSULE PO SCH ×2 (08:10→20:34)
[2018-09-11] MEDS: FLUTICASONE NASAL SPRAY 16GM NAS SCH ×2 (08:10→20:32)
[2018-09-11] MEDS: TAMSULOSIN 0.4 MG CAP.ER.24H PO SCH (08:10)
[2018-09-11] MEDS: MAGNESIUM OXIDE 400 MG TABLET PO SCH ×2 (08:10→20:33)
[2018-09-11] MEDS: POLYETHYLENE GLYCOL 17 GM PACKET PO SCH ×3 (08:11→20:34)
[2018-09-11] MEDS: THIAMINE 100MG TABLET PO SCH (08:11)
[2018-09-11] MEDS: ENOXAPARIN 40 MG/0.4 ML SQ SCH (08:16)
[2018-09-11] MEDS: BACLOFEN 10 MG TABLET PO SCH ×2 (08:16→20:33)
[2018-09-11 13:05] VITALS: BP 156/70
[2018-09-11 18:56] VITALS: BP 145/98
[2018-09-11] MEDS: QUETIAPINE 25MG TABLET PO SCH (20:33)
[2018-09-11] MEDS: CEFTRIAXONE PMX 1GM/50ML 50 ML IV SCH (21:42)
[2018-09-11] MEDS: NAPHAZOLINE/PHENIRAMINE OPHTH EACHEYE PRN (23:29)
[2018-09-12] MEDS: D5%-0.9% NACL+KCL 20MEQ 1,000 ML IV SCH ×3 (01:49→17:04)
[2018-09-12] MEDS: HYDROmorphone 2 MG/ML, 1ML IVPush PRN ×5 (01:50→22:33)
[2018-09-12 02:10] VITALS: BP 128/90
[2018-09-12] MEDS: OXYcodone IR 5MG TABLET PO PRN ×4 (04:47→23:29)
[2018-09-12] MEDS: PANTOPRAZOLE 20MG TABLET PO SCH (05:49)
[2018-09-12] MEDS: LEVOTHYROXINE 50 MCG TABLET PO SCH (05:49)
[2018-09-12] MEDS: METOPROLOL TARTRATE 25 MG TABLET PO SCH ×2 (05:49→17:04)
[2018-09-12 05:51] VITALS: BP 145/79
[2018-09-12 07:10] VITALS: BP 137/95
[2018-09-12] MEDS: FLUTICASONE NASAL SPRAY 16GM NAS SCH ×2 (09:00→20:30)
[2018-09-12] MEDS: DOCUSATE 100 MG CAPSULE PO SCH ×2 (09:00→20:30)
[2018-09-12] MEDS: ENOXAPARIN 40 MG/0.4 ML SQ SCH (09:00)
[2018-09-12] MEDS: THIAMINE 100MG TABLET PO SCH (09:00)
[2018-09-12] MEDS: MAGNESIUM OXIDE 400 MG TABLET PO SCH ×2 (09:00→20:28)
[2018-09-12] MEDS: POLYETHYLENE GLYCOL 17 GM PACKET PO SCH ×3 (09:00→20:30)
[2018-09-12] MEDS: TAMSULOSIN 0.4 MG CAP.ER.24H PO SCH (09:00)
[2018-09-12] MEDS: BACLOFEN 10 MG TABLET PO SCH ×2 (09:00→20:23)
[2018-09-12] MEDS: SULFAMETH./TRIMETHOPRIM DS 800MG/160MG TABLET PO SCH ×2 (09:00→20:25)
[2018-09-12 13:30] VITALS: BP 109/71
[2018-09-12 18:54] VITALS: BP 112/81
[2018-09-12] MEDS: QUETIAPINE 25MG TABLET PO SCH (20:27)
[2018-09-13] MEDS: D5%-0.9% NACL+KCL 20MEQ 1,000 ML IV SCH ×3 (00:50→18:43)
[2018-09-13 00:52] VITALS: BP 130/85
[2018-09-13] MEDS: HYDROmorphone 2 MG/ML, 1ML IVPush PRN ×5 (02:43→21:58)
[2018-09-13] MEDS: PANTOPRAZOLE 20MG TABLET PO SCH (05:41)
[2018-09-13] MEDS: METOPROLOL TARTRATE 25 MG TABLET PO SCH ×2 (05:41→18:10)
[2018-09-13] MEDS: LEVOTHYROXINE 50 MCG TABLET PO SCH (05:41)
[2018-09-13] MEDS: ONDANSETRON 2MG/ML, 2ML IVPush PRN (05:41)
[2018-09-13] MEDS: OXYcodone IR 5MG TABLET PO PRN ×2 (05:41→20:18)
[2018-09-13 05:48] VITALS: BP 113/84
[2018-09-13 06:21] LABS: CREATININE 0.84 mg/dL (0.7-1.3)
[2018-09-13 07:00] VITALS: BP 123/85
[2018-09-13] MEDS: TAMSULOSIN 0.4 MG CAP.ER.24H PO SCH (09:22)
[2018-09-13] MEDS: THIAMINE 100MG TABLET PO SCH (09:22)
[2018-09-13] MEDS: SULFAMETH./TRIMETHOPRIM DS 800MG/160MG TABLET PO SCH ×2 (09:22→20:18)
[2018-09-13] MEDS: DOCUSATE 100 MG CAPSULE PO SCH ×2 (09:22→20:05)
[2018-09-13] MEDS: BACLOFEN 10 MG TABLET PO SCH ×2 (09:22→20:06)
[2018-09-13] MEDS: POLYETHYLENE GLYCOL 17 GM PACKET PO SCH ×3 (09:22→20:06)
[2018-09-13] MEDS: FLUTICASONE NASAL SPRAY 16GM NAS SCH ×2 (09:22→20:06)
[2018-09-13] MEDS: MAGNESIUM OXIDE 400 MG TABLET PO SCH ×2 (09:22→20:05)
[2018-09-13] MEDS: ENOXAPARIN 40 MG/0.4 ML SQ SCH (09:22)
[2018-09-13 15:10] VITALS: BP 100/65
[2018-09-13 18:51] VITALS: BP 103/70
[2018-09-13] MEDS: QUETIAPINE 25MG TABLET PO SCH (20:06)
[2018-09-14 00:21] VITALS: BP 102/70
[2018-09-14] MEDS: HYDROmorphone 2 MG/ML, 1ML IVPush PRN ×3 (02:06→11:54)
[2018-09-14] MEDS: D5%-0.9% NACL+KCL 20MEQ 1,000 ML IV SCH ×3 (03:14→18:34)
[2018-09-14] MEDS: OXYcodone IR 5MG TABLET PO PRN ×2 (05:05→19:56)
[2018-09-14] MEDS: LEVOTHYROXINE 50 MCG TABLET PO SCH (05:05)
[2018-09-14 06:55] VITALS: BP 124/77
[2018-09-14] MEDS: ENOXAPARIN 40 MG/0.4 ML SQ SCH (08:57)
[2018-09-14] MEDS: METOPROLOL TARTRATE 25 MG TABLET PO SCH ×2 (08:58→17:55)
[2018-09-14] MEDS: THIAMINE 100MG TABLET PO SCH (08:58)
[2018-09-14] MEDS: FLUTICASONE NASAL SPRAY 16GM NAS SCH ×2 (08:58→20:03)
[2018-09-14] MEDS: TAMSULOSIN 0.4 MG CAP.ER.24H PO SCH (08:58)
[2018-09-14] MEDS: PANTOPRAZOLE 20MG TABLET PO SCH (08:58)
[2018-09-14] MEDS: DOCUSATE 100 MG CAPSULE PO SCH ×2 (08:58→19:56)
[2018-09-14] MEDS: LORazepam 2 MG/ML, 1ML IVPush PRN (08:58)
[2018-09-14] MEDS: POLYETHYLENE GLYCOL 17 GM PACKET PO SCH ×3 (09:00→19:50)
[2018-09-14] MEDS: SULFAMETH./TRIMETHOPRIM DS 800MG/160MG TABLET PO SCH ×2 (09:01→20:06)
[2018-09-14] MEDS: MAGNESIUM OXIDE 400 MG TABLET PO SCH ×3 (10:11→19:57)
[2018-09-14] MEDS: BACLOFEN 10 MG TABLET PO SCH ×2 (10:11→19:56)
[2018-09-14 12:05] VITALS: BP 114/80
[2018-09-14] MEDS: IBUPROFEN 200 MG TABLET PO PRN (14:59)
[2018-09-14] MEDS: MORPHINE SULFATE 4 MG/ML, 1ML IVPush PRN ×3 (16:03→21:57)
[2018-09-14 19:50] VITALS: BP 127/83
[2018-09-14] MEDS: QUETIAPINE 25MG TABLET PO SCH (19:56)
[2018-09-15] MEDS: MORPHINE SULFATE 4 MG/ML, 1ML IVPush PRN ×3 (01:05→20:23)
[2018-09-15 01:36] VITALS: BP 109/73
[2018-09-15] MEDS: D5%-0.9% NACL+KCL 20MEQ 1,000 ML IV SCH ×3 (03:01→22:48)
[2018-09-15] MEDS: METOPROLOL TARTRATE 25 MG TABLET PO SCH ×2 (05:12→16:43)
[2018-09-15] MEDS: PANTOPRAZOLE 20MG TABLET PO SCH (05:12)
[2018-09-15] MEDS: OXYcodone IR 5MG TABLET PO PRN ×2 (05:12→16:43)
[2018-09-15] MEDS: LEVOTHYROXINE 50 MCG TABLET PO SCH (05:12)
[2018-09-15 06:49] VITALS: BP 124/85
[2018-09-15] MEDS: THIAMINE 100MG TABLET PO SCH (08:03)
[2018-09-15] MEDS: IBUPROFEN 200 MG TABLET PO PRN (08:03)
[2018-09-15] MEDS: FLUTICASONE NASAL SPRAY 16GM NAS SCH ×2 (08:03→20:25)
[2018-09-15] MEDS: TAMSULOSIN 0.4 MG CAP.ER.24H PO SCH (08:03)
[2018-09-15] MEDS: SULFAMETH./TRIMETHOPRIM DS 800MG/160MG TABLET PO SCH ×2 (08:04→20:24)
[2018-09-15] MEDS: POLYETHYLENE GLYCOL 17 GM PACKET PO SCH ×3 (08:04→20:25)
[2018-09-15] MEDS: ENOXAPARIN 40 MG/0.4 ML SQ SCH (08:04)
[2018-09-15] MEDS: BACLOFEN 10 MG TABLET PO SCH ×2 (08:04→20:24)
[2018-09-15] MEDS: DOCUSATE 100 MG CAPSULE PO SCH ×2 (08:04→20:23)
[2018-09-15] MEDS: LORazepam 2 MG/ML, 1ML IVPush PRN ×2 (10:33→23:15)
[2018-09-15 13:55] VITALS: BP 140/93
[2018-09-15 19:08] VITALS: BP 107/72
[2018-09-15] MEDS: MAGNESIUM OXIDE 400 MG TABLET PO SCH (20:24)
[2018-09-15] MEDS: QUETIAPINE 25MG TABLET PO SCH (20:24)
[2018-09-16 00:41] VITALS: BP 159/69
[2018-09-16] MEDS: OXYcodone IR 5MG TABLET PO PRN ×4 (00:44→20:04)
[2018-09-16] MEDS: METOPROLOL TARTRATE 25 MG TABLET PO SCH ×2 (06:16→17:32)
[2018-09-16] MEDS: LEVOTHYROXINE 50 MCG TABLET PO SCH (06:16)
[2018-09-16] MEDS: PANTOPRAZOLE 20MG TABLET PO SCH (06:16)
[2018-09-16 06:18] VITALS: BP 122/90
[2018-09-16] MEDS: D5%-0.9% NACL+KCL 20MEQ 1,000 ML IV SCH ×2 (06:40→15:28)
[2018-09-16 06:50] VITALS: BP 134/91
[2018-09-16 07:31] LABS: CREATININE 0.94 mg/dL (0.7-1.3)
[2018-09-16] MEDS: TAMSULOSIN 0.4 MG CAP.ER.24H PO SCH ×2 (08:43→10:36)
[2018-09-16] MEDS: MORPHINE SULFATE 4 MG/ML, 1ML IVPush PRN ×4 (08:43→21:08)
[2018-09-16] MEDS: SULFAMETH./TRIMETHOPRIM DS 800MG/160MG TABLET PO SCH ×3 (08:43→20:04)
[2018-09-16] MEDS: POLYETHYLENE GLYCOL 17 GM PACKET PO SCH ×4 (08:44→20:04)
[2018-09-16] MEDS: ENOXAPARIN 40 MG/0.4 ML SQ SCH ×2 (08:44→09:00)
[2018-09-16] MEDS: BACLOFEN 10 MG TABLET PO SCH ×3 (08:44→20:03)
[2018-09-16] MEDS: THIAMINE 100MG TABLET PO SCH ×2 (08:44→10:37)
[2018-09-16] MEDS: DOCUSATE 100 MG CAPSULE PO SCH ×3 (08:44→20:04)
[2018-09-16] MEDS: MAGNESIUM OXIDE 400 MG TABLET PO SCH ×3 (08:44→20:04)
[2018-09-16] MEDS: FLUTICASONE NASAL SPRAY 16GM NAS SCH ×3 (08:44→20:03)
[2018-09-16 12:00] VITALS: BP 113/72
[2018-09-16] MEDS: QUETIAPINE 25MG TABLET PO SCH (20:04)
[2018-09-16 21:36] VITALS: BP 107/57
[2018-09-17 01:26] VITALS: BP 99/68
[2018-09-17] MEDS: D5%-0.9% NACL+KCL 20MEQ 1,000 ML IV SCH ×3 (01:31→17:22)
[2018-09-17] MEDS: MORPHINE SULFATE 4 MG/ML, 1ML IVPush PRN ×6 (01:31→22:08)
[2018-09-17] MEDS: OXYcodone IR 5MG TABLET PO PRN ×2 (02:49→19:18)
[2018-09-17] MEDS: LEVOTHYROXINE 50 MCG TABLET PO SCH (05:42)
[2018-09-17] MEDS: PANTOPRAZOLE 20MG TABLET PO SCH (05:42)
[2018-09-17] MEDS: METOPROLOL TARTRATE 25 MG TABLET PO SCH ×2 (05:45→17:22)
[2018-09-17 05:46] VITALS: BP 124/73
[2018-09-17 07:45] VITALS: BP 126/80
[2018-09-17] MEDS: FLUTICASONE NASAL SPRAY 16GM NAS SCH ×2 (09:12→22:10)
[2018-09-17] MEDS: ENOXAPARIN 40 MG/0.4 ML SQ SCH (09:12)
[2018-09-17] MEDS: BACLOFEN 10 MG TABLET PO SCH ×2 (09:13→22:08)
[2018-09-17] MEDS: MAGNESIUM OXIDE 400 MG TABLET PO SCH ×2 (09:13→22:08)
[2018-09-17] MEDS: DOCUSATE 100 MG CAPSULE PO SCH ×2 (09:13→22:08)
[2018-09-17] MEDS: THIAMINE 100MG TABLET PO SCH (09:13)
[2018-09-17] MEDS: POLYETHYLENE GLYCOL 17 GM PACKET PO SCH ×3 (09:13→21:00)
[2018-09-17] MEDS: SULFAMETH./TRIMETHOPRIM DS 800MG/160MG TABLET PO SCH ×2 (09:13→22:08)
[2018-09-17] MEDS: TAMSULOSIN 0.4 MG CAP.ER.24H PO SCH (09:13)
[2018-09-17 12:32] VITALS: BP 106/72
[2018-09-17] MEDS ORDERED: KETOROLAC 30 MG/1 ML IVPush ONE (14:30)
[2018-09-17 19:46] VITALS: BP 98/63
[2018-09-17 21:30] VITALS: BP 120/82
[2018-09-17] MEDS: QUETIAPINE 25MG TABLET PO SCH (22:09)
[2018-09-18] VITALS (7 sets, daily range): BP systolic 89–170; BP diastolic 53–88
[2018-09-18] MEDS: D5%-0.9% NACL+KCL 20MEQ 1,000 ML IV SCH ×3 (02:43→22:08)
[2018-09-18] MEDS: MORPHINE SULFATE 4 MG/ML, 1ML IVPush PRN ×6 (02:43→23:49)
[2018-09-18] MEDS: OXYcodone IR 5MG TABLET PO PRN ×4 (04:37→20:46)
[2018-09-18] MEDS: PANTOPRAZOLE 20MG TABLET PO SCH (05:58)
[2018-09-18] MEDS: LEVOTHYROXINE 50 MCG TABLET PO SCH (05:58)
[2018-09-18] MEDS: METOPROLOL TARTRATE 25 MG TABLET PO SCH ×2 (05:58→18:11)
[2018-09-18 06:25] LABS: CHLORIDE 110 mmol/L (98-107)
[2018-09-18 06:52] LABS: ANION GAP 9 mmol/L (5-15); CALCIUM 9.4 mg/dL (8.5-10.1); CREATININE 0.83 mg/dL (0.7-1.3)
[2018-09-18] MEDS: POLYETHYLENE GLYCOL 17 GM PACKET PO SCH ×3 (09:00→20:47)
[2018-09-18] MEDS: ONDANSETRON 2MG/ML, 2ML IVPush PRN (09:16)
[2018-09-18] MEDS: DOCUSATE 100 MG CAPSULE PO SCH ×2 (10:53→20:47)
[2018-09-18] MEDS: BACLOFEN 10 MG TABLET PO SCH ×2 (10:53→20:46)
[2018-09-18] MEDS: TAMSULOSIN 0.4 MG CAP.ER.24H PO SCH (10:53)
[2018-09-18] MEDS: SULFAMETH./TRIMETHOPRIM DS 800MG/160MG TABLET PO SCH ×2 (10:53→20:56)
[2018-09-18] MEDS: FLUTICASONE NASAL SPRAY 16GM NAS SCH ×2 (10:53→20:46)
[2018-09-18] MEDS: MAGNESIUM OXIDE 400 MG TABLET PO SCH ×2 (10:53→20:57)
[2018-09-18] MEDS: THIAMINE 100MG TABLET PO SCH (10:53)
[2018-09-18] MEDS: ENOXAPARIN 40 MG/0.4 ML SQ SCH (10:54)
[2018-09-18] MEDS: IBUPROFEN 200 MG TABLET PO PRN (14:39)
[2018-09-18] MEDS: LIDODERM 5% PATCH TD PRN (15:05)
[2018-09-18] MEDS: LORazepam 2 MG/ML, 1ML IVPush PRN (15:09)
[2018-09-18] MEDS: LACTOBACILLUS CHEW TABLET PO SCH (20:46)
[2018-09-18] MEDS: QUETIAPINE 25MG TABLET PO SCH (20:55)
[2018-09-19 00:21] VITALS: BP 99/66
[2018-09-19] MEDS: MORPHINE SULFATE 4 MG/ML, 1ML IVPush PRN ×5 (03:43→22:26)
[2018-09-19] MEDS: OXYcodone IR 5MG TABLET PO PRN ×3 (04:42→21:14)
[2018-09-19 05:13] LABS: CREATININE 0.85 mg/dL (0.7-1.3)
[2018-09-19] MEDS: LEVOTHYROXINE 50 MCG TABLET PO SCH (05:45)
[2018-09-19] MEDS: LACTOBACILLUS CHEW TABLET PO SCH ×4 (05:45→21:14)
[2018-09-19] MEDS: D5%-0.9% NACL+KCL 20MEQ 1,000 ML IV SCH ×3 (05:45→22:23)
[2018-09-19] MEDS: PANTOPRAZOLE 20MG TABLET PO SCH (05:45)
[2018-09-19] MEDS: METOPROLOL TARTRATE 25 MG TABLET PO SCH ×3 (05:46→16:34)
[2018-09-19 05:49] VITALS: BP 99/68
[2018-09-19 06:49] VITALS: BP 120/75
[2018-09-19] MEDS: LORazepam 2 MG/ML, 1ML IVPush PRN ×2 (08:42→20:29)
[2018-09-19] MEDS: POLYETHYLENE GLYCOL 17 GM PACKET PO SCH ×3 (10:55→21:14)
[2018-09-19] MEDS: THIAMINE 100MG TABLET PO SCH (10:56)
[2018-09-19] MEDS: DOCUSATE 100 MG CAPSULE PO SCH ×2 (10:56→21:14)
[2018-09-19] MEDS: MAGNESIUM OXIDE 400 MG TABLET PO SCH ×2 (10:56→21:14)
[2018-09-19] MEDS: TAMSULOSIN 0.4 MG CAP.ER.24H PO SCH (10:56)
[2018-09-19] MEDS: SULFAMETH./TRIMETHOPRIM DS 800MG/160MG TABLET PO SCH ×2 (10:56→21:14)
[2018-09-19] MEDS: ENOXAPARIN 40 MG/0.4 ML SQ SCH (10:56)
[2018-09-19] MEDS: BACLOFEN 10 MG TABLET PO SCH ×2 (10:56→21:14)
[2018-09-19] MEDS: FLUTICASONE NASAL SPRAY 16GM NAS SCH ×2 (10:58→21:13)
[2018-09-19 12:23] VITALS: BP 113/79
[2018-09-19 20:07] VITALS: BP 103/71
[2018-09-19] MEDS: QUETIAPINE 25MG TABLET PO SCH (21:15)
[2018-09-20 00:25] VITALS: BP 132/89
[2018-09-20] MEDS: MORPHINE SULFATE 4 MG/ML, 1ML IVPush PRN ×5 (01:29→23:34)
[2018-09-20] MEDS: OXYcodone IR 5MG TABLET PO PRN ×3 (03:53→19:43)
[2018-09-20 04:59] VITALS: BP 107/74
[2018-09-20] MEDS: LEVOTHYROXINE 50 MCG TABLET PO SCH (05:00)
[2018-09-20] MEDS: PANTOPRAZOLE 20MG TABLET PO SCH (05:00)
[2018-09-20] MEDS: METOPROLOL TARTRATE 25 MG TABLET PO SCH ×2 (05:00→18:48)
[2018-09-20] MEDS: LACTOBACILLUS CHEW TABLET PO SCH ×4 (05:00→22:17)
[2018-09-20] MEDS: D5%-0.9% NACL+KCL 20MEQ 1,000 ML IV SCH ×2 (06:05→15:33)
[2018-09-20 07:10] VITALS: BP 122/93
[2018-09-20] MEDS: LORazepam 2 MG/ML, 1ML IVPush PRN (08:42)
[2018-09-20] MEDS: POLYETHYLENE GLYCOL 17 GM PACKET PO SCH ×3 (09:00→21:00)
[2018-09-20] MEDS: DOCUSATE 100 MG CAPSULE PO SCH ×2 (09:00→22:16)
[2018-09-20 12:30] VITALS: BP 112/77
[2018-09-20] MEDS: FLUTICASONE NASAL SPRAY 16GM NAS SCH ×2 (13:08→22:22)
[2018-09-20] MEDS: THIAMINE 100MG TABLET PO SCH (13:08)
[2018-09-20] MEDS: TAMSULOSIN 0.4 MG CAP.ER.24H PO SCH (13:08)
[2018-09-20] MEDS: BACLOFEN 10 MG TABLET PO SCH ×2 (13:08→22:16)
[2018-09-20] MEDS: ENOXAPARIN 40 MG/0.4 ML SQ SCH (13:08)
[2018-09-20] MEDS: MAGNESIUM OXIDE 400 MG TABLET PO SCH ×2 (13:08→22:16)
[2018-09-20] MEDS: SULFAMETH./TRIMETHOPRIM DS 800MG/160MG TABLET PO SCH ×2 (13:09→22:29)
[2018-09-20 18:50] VITALS: BP 122/87
[2018-09-20] MEDS ORDERED: NAPROXEN 250 MG TABLET PO SCH (20:00)
[2018-09-20] MEDS: QUETIAPINE 25MG TABLET PO SCH (22:17)
[2018-09-21 00:46] VITALS: BP 118/80
[2018-09-21] MEDS: MORPHINE SULFATE 4 MG/ML, 1ML IVPush PRN ×7 (02:25→22:52)
[2018-09-21] MEDS: OXYcodone IR 5MG TABLET PO PRN ×2 (03:24→10:05)
[2018-09-21] MEDS: D5%-0.9% NACL+KCL 20MEQ 1,000 ML IV SCH ×3 (03:24→18:32)
[2018-09-21] MEDS: LORazepam 2 MG/ML, 1ML IVPush PRN ×2 (03:33→19:46)
[2018-09-21] MEDS: PANTOPRAZOLE 20MG TABLET PO SCH (05:39)
[2018-09-21] MEDS: LEVOTHYROXINE 50 MCG TABLET PO SCH (05:39)
[2018-09-21] MEDS: LACTOBACILLUS CHEW TABLET PO SCH ×4 (05:39→21:28)
[2018-09-21] MEDS: METOPROLOL TARTRATE 25 MG TABLET PO SCH ×2 (05:39→18:28)
[2018-09-21 06:57] VITALS: BP 116/82
[2018-09-21] MEDS: SULFAMETH./TRIMETHOPRIM DS 800MG/160MG TABLET PO SCH ×2 (08:51→21:27)
[2018-09-21] MEDS: TAMSULOSIN 0.4 MG CAP.ER.24H PO SCH (08:51)
[2018-09-21] MEDS: BACLOFEN 10 MG TABLET PO SCH ×2 (08:51→21:28)
[2018-09-21] MEDS: MAGNESIUM OXIDE 400 MG TABLET PO SCH ×2 (08:51→21:28)
[2018-09-21] MEDS: POLYETHYLENE GLYCOL 17 GM PACKET PO SCH ×3 (08:51→21:28)
[2018-09-21] MEDS: THIAMINE 100MG TABLET PO SCH (08:51)
[2018-09-21] MEDS: DOCUSATE 100 MG CAPSULE PO SCH ×2 (08:51→21:28)
[2018-09-21] MEDS: FLUTICASONE NASAL SPRAY 16GM NAS SCH ×2 (08:52→21:49)
[2018-09-21] MEDS: ENOXAPARIN 40 MG/0.4 ML SQ SCH (10:02)
[2018-09-21 13:50] VITALS: BP 99/66
[2018-09-21 19:23] VITALS: BP 101/67
[2018-09-21] MEDS: QUETIAPINE 25MG TABLET PO SCH (21:29)
[2018-09-22 00:15] VITALS: BP 107/72
[2018-09-22] MEDS: MORPHINE SULFATE 4 MG/ML, 1ML IVPush PRN ×6 (02:35→21:17)
[2018-09-22] MEDS: D5%-0.9% NACL+KCL 20MEQ 1,000 ML IV SCH ×3 (02:43→18:28)
[2018-09-22 05:41] LABS: CREATININE 0.76 mg/dL (0.7-1.3)
[2018-09-22 06:49] VITALS: BP 106/73
[2018-09-22] MEDS: LACTOBACILLUS CHEW TABLET PO SCH ×4 (08:35→21:18)
[2018-09-22] MEDS: LEVOTHYROXINE 50 MCG TABLET PO SCH (08:35)
[2018-09-22] MEDS: MAGNESIUM OXIDE 400 MG TABLET PO SCH ×2 (08:35→21:18)
[2018-09-22] MEDS: TAMSULOSIN 0.4 MG CAP.ER.24H PO SCH (08:36)
[2018-09-22] MEDS: SULFAMETH./TRIMETHOPRIM DS 800MG/160MG TABLET PO SCH ×2 (08:36→21:18)
[2018-09-22] MEDS: PANTOPRAZOLE 20MG TABLET PO SCH (08:36)
[2018-09-22] MEDS: ENOXAPARIN 40 MG/0.4 ML SQ SCH (08:36)
[2018-09-22] MEDS: FLUTICASONE NASAL SPRAY 16GM NAS SCH ×2 (08:36→21:18)
[2018-09-22] MEDS: THIAMINE 100MG TABLET PO SCH (08:36)
[2018-09-22] MEDS: METOPROLOL TARTRATE 25 MG TABLET PO SCH ×2 (08:36→17:27)
[2018-09-22] MEDS: OXYcodone IR 5MG TABLET PO PRN ×2 (08:36→14:49)
[2018-09-22] MEDS: DOCUSATE 100 MG CAPSULE PO SCH ×2 (08:36→21:18)
[2018-09-22] MEDS: LORazepam 2 MG/ML, 1ML IVPush PRN ×2 (08:40→18:27)
[2018-09-22] MEDS: BACLOFEN 10 MG TABLET PO SCH ×2 (08:40→21:18)
[2018-09-22] MEDS: POLYETHYLENE GLYCOL 17 GM PACKET PO SCH ×3 (09:00→21:18)
[2018-09-22 12:06] VITALS: BP 113/79
[2018-09-22 20:01] VITALS: BP 113/72
[2018-09-22] MEDS: QUETIAPINE 25MG TABLET PO SCH (21:19)
[2018-09-23] MEDS: MORPHINE SULFATE 4 MG/ML, 1ML IVPush PRN ×6 (00:37→22:36)
[2018-09-23] MEDS: D5%-0.9% NACL+KCL 20MEQ 1,000 ML IV SCH ×3 (00:48→21:41)
[2018-09-23 00:54] VITALS: BP 92/57
[2018-09-23] MEDS: LORazepam 2 MG/ML, 1ML IVPush PRN ×3 (01:55→21:41)
[2018-09-23] MEDS: METOPROLOL TARTRATE 25 MG TABLET PO SCH ×2 (06:00→16:32)
[2018-09-23] MEDS: LEVOTHYROXINE 50 MCG TABLET PO SCH (06:20)
[2018-09-23] MEDS: PANTOPRAZOLE 20MG TABLET PO SCH (06:20)
[2018-09-23] MEDS: OXYcodone IR 5MG TABLET PO PRN ×3 (06:20→20:14)
[2018-09-23] MEDS: LACTOBACILLUS CHEW TABLET PO SCH ×4 (06:20→21:43)
[2018-09-23 07:17] VITALS: BP 111/80
[2018-09-23] MEDS: FLUTICASONE NASAL SPRAY 16GM NAS SCH ×2 (08:50→21:42)
[2018-09-23] MEDS: THIAMINE 100MG TABLET PO SCH (08:50)
[2018-09-23] MEDS: BACLOFEN 10 MG TABLET PO SCH ×2 (08:51→21:43)
[2018-09-23] MEDS: TAMSULOSIN 0.4 MG CAP.ER.24H PO SCH (08:51)
[2018-09-23] MEDS: DOCUSATE 100 MG CAPSULE PO SCH ×2 (08:51→21:43)
[2018-09-23] MEDS: POLYETHYLENE GLYCOL 17 GM PACKET PO SCH ×3 (08:51→21:43)
[2018-09-23] MEDS: SULFAMETH./TRIMETHOPRIM DS 800MG/160MG TABLET PO SCH ×2 (08:51→21:43)
[2018-09-23] MEDS: ENOXAPARIN 40 MG/0.4 ML SQ SCH (08:52)
[2018-09-23] MEDS: MAGNESIUM OXIDE 400 MG TABLET PO SCH ×2 (08:57→21:43)
[2018-09-23 12:20] VITALS: BP 99/70
[2018-09-23 20:00] VITALS: BP 109/72
[2018-09-23] MEDS: QUETIAPINE 25MG TABLET PO SCH (21:44)
[2018-09-23] MEDS: NAPHAZOLINE/PHENIRAMINE OPHTH EACHEYE PRN (21:47)
[2018-09-24 01:26] VITALS: BP 108/75
[2018-09-24] MEDS: MORPHINE SULFATE 4 MG/ML, 1ML IVPush PRN ×6 (01:35→20:40)
[2018-09-24] MEDS: LORazepam 2 MG/ML, 1ML IVPush PRN ×3 (05:19→23:47)
[2018-09-24] MEDS: D5%-0.9% NACL+KCL 20MEQ 1,000 ML IV SCH ×3 (05:22→20:41)
[2018-09-24] MEDS: OXYcodone IR 5MG TABLET PO PRN ×3 (05:22→18:38)
[2018-09-24] MEDS: PANTOPRAZOLE 20MG TABLET PO SCH (05:22)
[2018-09-24] MEDS: METOPROLOL TARTRATE 25 MG TABLET PO SCH ×2 (05:23→17:37)
[2018-09-24] MEDS: LEVOTHYROXINE 50 MCG TABLET PO SCH (05:24)
[2018-09-24] MEDS: LACTOBACILLUS CHEW TABLET PO SCH ×4 (05:27→20:18)
[2018-09-24 06:58] VITALS: BP 113/78
[2018-09-24] MEDS: POLYETHYLENE GLYCOL 17 GM PACKET PO SCH ×3 (09:00→19:48)
[2018-09-24] MEDS: DOCUSATE 100 MG CAPSULE PO SCH ×2 (09:00→19:43)
[2018-09-24] MEDS: SULFAMETH./TRIMETHOPRIM DS 800MG/160MG TABLET PO SCH ×2 (09:28→20:18)
[2018-09-24] MEDS: BACLOFEN 10 MG TABLET PO SCH ×2 (09:28→20:18)
[2018-09-24] MEDS: MAGNESIUM OXIDE 400 MG TABLET PO SCH ×2 (09:28→20:18)
[2018-09-24] MEDS: TAMSULOSIN 0.4 MG CAP.ER.24H PO SCH (09:28)
[2018-09-24] MEDS: ENOXAPARIN 40 MG/0.4 ML SQ SCH (09:28)
[2018-09-24] MEDS: THIAMINE 100MG TABLET PO SCH (09:28)
[2018-09-24] MEDS: FLUTICASONE NASAL SPRAY 16GM NAS SCH ×2 (09:28→20:41)
[2018-09-24 12:05] VITALS: BP 110/69
[2018-09-24 17:34] VITALS: BP 118/79
[2018-09-24 18:42] VITALS: BP 114/74
[2018-09-24] MEDS: QUETIAPINE 25MG TABLET PO SCH (20:19)
[2018-09-25] MEDS: MORPHINE SULFATE 4 MG/ML, 1ML IVPush PRN ×7 (00:53→21:34)
[2018-09-25 01:30] VITALS: BP 101/69
[2018-09-25] MEDS: OXYcodone IR 5MG TABLET PO PRN ×4 (03:33→22:17)
[2018-09-25] MEDS: LACTOBACILLUS CHEW TABLET PO SCH ×4 (05:14→22:16)
[2018-09-25] MEDS: PANTOPRAZOLE 20MG TABLET PO SCH (05:14)
[2018-09-25] MEDS: LEVOTHYROXINE 50 MCG TABLET PO SCH (05:14)
[2018-09-25] MEDS: METOPROLOL TARTRATE 25 MG TABLET PO SCH ×2 (05:14→17:03)
[2018-09-25 05:16] VITALS: BP 124/77
[2018-09-25 05:21] LABS: CREATININE 0.82 mg/dL (0.7-1.3)
[2018-09-25] MEDS: D5%-0.9% NACL+KCL 20MEQ 1,000 ML IV SCH ×3 (05:38→22:59)
[2018-09-25 07:57] VITALS: BP 119/91
[2018-09-25] MEDS: LORazepam 2 MG/ML, 1ML IVPush PRN ×3 (07:58→23:59)
[2018-09-25] MEDS: FLUTICASONE NASAL SPRAY 16GM NAS SCH ×2 (08:38→22:18)
[2018-09-25] MEDS: FENTANYL 25 MCG PATCH TD SCH (08:39)
[2018-09-25] MEDS: BACLOFEN 10 MG TABLET PO SCH ×2 (08:39→22:17)
[2018-09-25] MEDS: DOCUSATE 100 MG CAPSULE PO SCH ×2 (08:39→22:16)
[2018-09-25] MEDS: SULFAMETH./TRIMETHOPRIM DS 800MG/160MG TABLET PO SCH ×2 (08:40→22:17)
[2018-09-25] MEDS: THIAMINE 100MG TABLET PO SCH (08:40)
[2018-09-25] MEDS: ENOXAPARIN 40 MG/0.4 ML SQ SCH (08:40)
[2018-09-25] MEDS: MAGNESIUM OXIDE 400 MG TABLET PO SCH ×2 (08:40→22:16)
[2018-09-25] MEDS: TAMSULOSIN 0.4 MG CAP.ER.24H PO SCH (08:40)
[2018-09-25] MEDS: POLYETHYLENE GLYCOL 17 GM PACKET PO SCH ×3 (08:47→22:18)
[2018-09-25 12:51] VITALS: BP 111/7
[2018-09-25] MEDS: IBUPROFEN 200 MG TABLET PO PRN (15:24)
[2018-09-25 17:00] VITALS: BP 120/71
[2018-09-25 21:26] VITALS: BP 134/67
[2018-09-25] MEDS: QUETIAPINE 25MG TABLET PO SCH (22:16)
[2018-09-26] MEDS: MORPHINE SULFATE 4 MG/ML, 1ML IVPush PRN ×6 (01:13→22:27)
[2018-09-26 01:36] VITALS: BP 117/77
[2018-09-26] MEDS: D5%-0.9% NACL+KCL 20MEQ 1,000 ML IV SCH ×3 (06:02→22:39)
[2018-09-26] MEDS: METOPROLOL TARTRATE 25 MG TABLET PO SCH ×3 (06:03→17:58)
[2018-09-26] MEDS: LACTOBACILLUS CHEW TABLET PO SCH ×4 (06:03→21:24)
[2018-09-26] MEDS: PANTOPRAZOLE 20MG TABLET PO SCH (06:03)
[2018-09-26] MEDS: LEVOTHYROXINE 50 MCG TABLET PO SCH (06:04)
[2018-09-26 08:27] VITALS: BP 111/73
[2018-09-26] MEDS: DOCUSATE 100 MG CAPSULE PO SCH ×2 (09:00→21:25)
[2018-09-26] MEDS: POLYETHYLENE GLYCOL 17 GM PACKET PO SCH ×3 (09:00→21:00)
[2018-09-26] MEDS: THIAMINE 100MG TABLET PO SCH (09:13)
[2018-09-26] MEDS: MAGNESIUM OXIDE 400 MG TABLET PO SCH ×2 (09:13→21:24)
[2018-09-26] MEDS: SULFAMETH./TRIMETHOPRIM DS 800MG/160MG TABLET PO SCH ×2 (09:13→21:24)
[2018-09-26] MEDS: TAMSULOSIN 0.4 MG CAP.ER.24H PO SCH (09:13)
[2018-09-26] MEDS: ENOXAPARIN 40 MG/0.4 ML SQ SCH (09:13)
[2018-09-26] MEDS: BACLOFEN 10 MG TABLET PO SCH ×2 (09:13→21:24)
[2018-09-26] MEDS: OXYcodone IR 5MG TABLET PO PRN ×3 (09:13→23:20)
[2018-09-26] MEDS: FLUTICASONE NASAL SPRAY 16GM NAS SCH ×2 (09:20→21:24)
[2018-09-26] MEDS: LORazepam 2 MG/ML, 1ML IVPush PRN ×2 (12:59→21:25)
[2018-09-26 13:17] VITALS: BP 93/60
[2018-09-26 17:58] VITALS: BP 95/64
[2018-09-26 19:55] VITALS: BP 110/68
[2018-09-26] MEDS: QUETIAPINE 25MG TABLET PO SCH (21:43)
[2018-09-27 00:31] VITALS: BP 114/78
[2018-09-27] MEDS: MORPHINE SULFATE 4 MG/ML, 1ML IVPush PRN ×6 (01:48→22:30)
[2018-09-27] MEDS: LACTOBACILLUS CHEW TABLET PO SCH ×4 (05:24→21:05)
[2018-09-27] MEDS: D5%-0.9% NACL+KCL 20MEQ 1,000 ML IV SCH ×2 (05:24→15:00)
[2018-09-27] MEDS: METOPROLOL TARTRATE 25 MG TABLET PO SCH ×2 (05:25→18:18)
[2018-09-27] MEDS: LEVOTHYROXINE 50 MCG TABLET PO SCH (05:25)
[2018-09-27] MEDS: PANTOPRAZOLE 20MG TABLET PO SCH (05:25)
[2018-09-27 05:27] VITALS: BP 121/83
[2018-09-27 07:26] VITALS: BP 115/75
[2018-09-27] MEDS: FLUTICASONE NASAL SPRAY 16GM NAS SCH ×2 (07:49→21:04)
[2018-09-27] MEDS: ENOXAPARIN 40 MG/0.4 ML SQ SCH (07:50)
[2018-09-27] MEDS: MAGNESIUM OXIDE 400 MG TABLET PO SCH ×2 (07:50→21:05)
[2018-09-27] MEDS: POLYETHYLENE GLYCOL 17 GM PACKET PO SCH ×3 (07:50→21:04)
[2018-09-27] MEDS: SULFAMETH./TRIMETHOPRIM DS 800MG/160MG TABLET PO SCH (07:50)
[2018-09-27] MEDS: THIAMINE 100MG TABLET PO SCH (07:50)
[2018-09-27] MEDS: TAMSULOSIN 0.4 MG CAP.ER.24H PO SCH (07:50)
[2018-09-27] MEDS: DOCUSATE 100 MG CAPSULE PO SCH ×2 (07:50→21:05)
[2018-09-27] MEDS: OXYcodone IR 5MG TABLET PO PRN ×3 (07:50→21:05)
[2018-09-27] MEDS: BACLOFEN 10 MG TABLET PO SCH ×2 (07:50→21:05)
[2018-09-27] MEDS: LORazepam 2 MG/ML, 1ML IVPush PRN ×2 (07:51→18:19)
[2018-09-27 15:42] VITALS: BP 101/60
[2018-09-27 20:11] VITALS: BP 131/82
[2018-09-27] MEDS: QUETIAPINE 25MG TABLET PO SCH (21:05)
[2018-09-28] MEDS: MORPHINE SULFATE 4 MG/ML, 1ML IVPush PRN ×7 (01:48→23:04)
[2018-09-28 02:32] VITALS: BP 129/88
[2018-09-28] MEDS: LORazepam 2 MG/ML, 1ML IVPush PRN ×3 (02:40→22:25)
[2018-09-28] MEDS: OXYcodone IR 5MG TABLET PO PRN ×3 (03:54→17:59)
[2018-09-28] MEDS: PANTOPRAZOLE 20MG TABLET PO SCH (05:23)
[2018-09-28] MEDS: LACTOBACILLUS CHEW TABLET PO SCH ×4 (05:23→22:25)
[2018-09-28] MEDS: LEVOTHYROXINE 50 MCG TABLET PO SCH (05:23)
[2018-09-28] MEDS: METOPROLOL TARTRATE 25 MG TABLET PO SCH ×2 (05:24→17:59)
[2018-09-28 05:25] VITALS: BP 130/89
[2018-09-28 06:07] LABS: CREATININE 0.87 mg/dL (0.7-1.3)
[2018-09-28 07:31] VITALS: BP 127/77
[2018-09-28] MEDS: FENTANYL REMOVE PATCH NOTE XX SCH (08:30)
[2018-09-28] MEDS: POLYETHYLENE GLYCOL 17 GM PACKET PO SCH ×3 (08:45→22:24)
[2018-09-28] MEDS: THIAMINE 100MG TABLET PO SCH (08:45)
[2018-09-28] MEDS: ENOXAPARIN 40 MG/0.4 ML SQ SCH (08:45)
[2018-09-28] MEDS: DOCUSATE 100 MG CAPSULE PO SCH ×2 (08:45→22:24)
[2018-09-28] MEDS: TAMSULOSIN 0.4 MG CAP.ER.24H PO SCH (08:45)
[2018-09-28] MEDS: MAGNESIUM OXIDE 400 MG TABLET PO SCH ×2 (08:45→22:25)
[2018-09-28] MEDS: BACLOFEN 10 MG TABLET PO SCH ×2 (08:45→22:25)
[2018-09-28] MEDS: FLUTICASONE NASAL SPRAY 16GM NAS SCH ×2 (09:01→22:25)
[2018-09-28] MEDS: FENTANYL 25 MCG PATCH TD SCH (09:16)
[2018-09-28] MEDS: D5%-0.9% NACL+KCL 20MEQ 1,000 ML IV SCH ×2 (09:17→22:23)
[2018-09-28 15:55] VITALS: BP 111/70
[2018-09-28 19:22] VITALS: BP 98/66
[2018-09-28] MEDS: QUETIAPINE 25MG TABLET PO SCH (22:24)
[2018-09-29 01:55] VITALS: BP 127/80
[2018-09-29] MEDS: MORPHINE SULFATE 4 MG/ML, 1ML IVPush PRN ×6 (04:01→20:51)
[2018-09-29] MEDS: METOPROLOL TARTRATE 25 MG TABLET PO SCH ×2 (06:40→17:46)
[2018-09-29] MEDS: LACTOBACILLUS CHEW TABLET PO SCH ×4 (06:40→20:50)
[2018-09-29] MEDS: OXYcodone IR 5MG TABLET PO PRN ×3 (06:40→23:16)
[2018-09-29] MEDS: LEVOTHYROXINE 50 MCG TABLET PO SCH (06:41)
[2018-09-29] MEDS: PANTOPRAZOLE 20MG TABLET PO SCH (06:41)
[2018-09-29 07:42] VITALS: BP 149/85
[2018-09-29] MEDS: POLYETHYLENE GLYCOL 17 GM PACKET PO SCH ×3 (08:15→21:00)
[2018-09-29] MEDS: D5%-0.9% NACL+KCL 20MEQ 1,000 ML IV SCH ×2 (08:15→17:46)
[2018-09-29] MEDS: FLUTICASONE NASAL SPRAY 16GM NAS SCH ×2 (08:15→21:00)
[2018-09-29] MEDS: MAGNESIUM OXIDE 400 MG TABLET PO SCH ×2 (08:16→20:49)
[2018-09-29] MEDS: TAMSULOSIN 0.4 MG CAP.ER.24H PO SCH (08:16)
[2018-09-29] MEDS: DOCUSATE 100 MG CAPSULE PO SCH ×2 (08:16→20:49)
[2018-09-29] MEDS: THIAMINE 100MG TABLET PO SCH (08:16)
[2018-09-29] MEDS: ENOXAPARIN 40 MG/0.4 ML SQ SCH (08:16)
[2018-09-29] MEDS: BACLOFEN 10 MG TABLET PO SCH ×2 (08:16→20:50)
[2018-09-29 12:44] VITALS: BP 163/74
[2018-09-29 12:46] VITALS: BP 158/87
[2018-09-29] MEDS: LORazepam 2 MG/ML, 1ML IVPush PRN ×2 (12:49→21:53)
[2018-09-29 14:41] VITALS: BP 126/88
[2018-09-29] MEDS: LIDODERM 5% PATCH TD PRN (19:45)
[2018-09-29 20:18] VITALS: BP 117/65
[2018-09-29] MEDS: QUETIAPINE 25MG TABLET PO SCH (20:50)
[2018-09-29] MEDS: IBUPROFEN 200 MG TABLET PO PRN (23:16)
[2018-09-30] MEDS: MORPHINE SULFATE 4 MG/ML, 1ML IVPush PRN ×7 (00:34→23:26)
[2018-09-30 01:02] VITALS: BP 151/51
[2018-09-30] MEDS: D5%-0.9% NACL+KCL 20MEQ 1,000 ML IV SCH ×2 (03:49→20:28)
[2018-09-30] MEDS: METOPROLOL TARTRATE 25 MG TABLET PO SCH ×2 (06:29→18:25)
[2018-09-30] MEDS: LORazepam 2 MG/ML, 1ML IVPush PRN ×3 (06:29→22:22)
[2018-09-30] MEDS: LACTOBACILLUS CHEW TABLET PO SCH ×4 (06:30→22:18)
[2018-09-30] MEDS: LEVOTHYROXINE 50 MCG TABLET PO SCH (06:30)
[2018-09-30] MEDS: OXYcodone IR 5MG TABLET PO PRN ×3 (06:30→22:18)
[2018-09-30] MEDS: PANTOPRAZOLE 20MG TABLET PO SCH (06:30)
[2018-09-30 08:11] VITALS: BP 123/80
[2018-09-30] MEDS: FLUTICASONE NASAL SPRAY 16GM NAS SCH ×2 (08:14→22:17)
[2018-09-30] MEDS: ENOXAPARIN 40 MG/0.4 ML SQ SCH (08:15)
[2018-09-30] MEDS: TAMSULOSIN 0.4 MG CAP.ER.24H PO SCH (08:15)
[2018-09-30] MEDS: BACLOFEN 10 MG TABLET PO SCH ×2 (08:15→20:32)
[2018-09-30] MEDS: POLYETHYLENE GLYCOL 17 GM PACKET PO SCH ×3 (08:15→22:18)
[2018-09-30] MEDS: THIAMINE 100MG TABLET PO SCH (08:15)
[2018-09-30] MEDS: DOCUSATE 100 MG CAPSULE PO SCH ×2 (08:15→22:18)
[2018-09-30] MEDS: MAGNESIUM OXIDE 400 MG TABLET PO SCH ×2 (08:15→22:21)
[2018-09-30 14:00] VITALS: BP 149/91
[2018-09-30] MEDS: LIDODERM 5% PATCH TD PRN (20:32)
[2018-09-30] MEDS: QUETIAPINE 25MG TABLET PO SCH (22:20)
[2018-10-01] VITALS: BP 170/83
[2018-10-01 02:06] VITALS: BP 133/84
[2018-10-01] MEDS: MORPHINE SULFATE 4 MG/ML, 1ML IVPush PRN ×7 (02:28→21:50)
[2018-10-01] MEDS: OXYcodone IR 5MG TABLET PO PRN ×3 (04:24→17:48)
[2018-10-01 05:30] VITALS: BP 129/86
[2018-10-01] MEDS: LACTOBACILLUS CHEW TABLET PO SCH ×4 (05:38→20:39)
[2018-10-01] MEDS: PANTOPRAZOLE 20MG TABLET PO SCH (05:38)
[2018-10-01] MEDS: METOPROLOL TARTRATE 25 MG TABLET PO SCH ×2 (05:38→17:48)
[2018-10-01] MEDS: LEVOTHYROXINE 50 MCG TABLET PO SCH (05:39)
[2018-10-01 06:13] LABS: CREATININE 0.54 mg/dL (0.7-1.3)
[2018-10-01] MEDS: LORazepam 2 MG/ML, 1ML IVPush PRN ×3 (06:31→22:33)
[2018-10-01] MEDS: D5%-0.9% NACL+KCL 20MEQ 1,000 ML IV SCH (06:31)
[2018-10-01 07:44] VITALS: BP 150/88
[2018-10-01] MEDS: FENTANYL REMOVE PATCH NOTE XX SCH (08:30)
[2018-10-01] MEDS: FLUTICASONE NASAL SPRAY 16GM NAS SCH ×2 (08:55→20:39)
[2018-10-01] MEDS: DOCUSATE 100 MG CAPSULE PO SCH ×2 (08:56→20:33)
[2018-10-01] MEDS: MAGNESIUM OXIDE 400 MG TABLET PO SCH ×2 (08:56→20:33)
[2018-10-01] MEDS: POLYETHYLENE GLYCOL 17 GM PACKET PO SCH ×3 (08:56→20:32)
[2018-10-01] MEDS: BACLOFEN 10 MG TABLET PO SCH ×2 (08:56→20:33)
[2018-10-01] MEDS: TAMSULOSIN 0.4 MG CAP.ER.24H PO SCH (08:56)
[2018-10-01] MEDS: THIAMINE 100MG TABLET PO SCH (08:57)
[2018-10-01] MEDS: ENOXAPARIN 40 MG/0.4 ML SQ SCH (08:58)
[2018-10-01] MEDS ORDERED: FENTANYL 25 MCG PATCH ONE ×2 (11:17→11:26)
[2018-10-01 14:39] VITALS: BP 112/77
[2018-10-01 19:14] VITALS: BP 137/91
[2018-10-01] MEDS: QUETIAPINE 25MG TABLET PO SCH (20:34)
[2018-10-02] MEDS: MORPHINE SULFATE 4 MG/ML, 1ML IVPush PRN ×6 (00:51→15:50)
[2018-10-02 01:54] VITALS: BP 118/79
[2018-10-02] MEDS: OXYcodone IR 5MG TABLET PO PRN ×3 (03:39→17:13)
[2018-10-02] MEDS: LACTOBACILLUS CHEW TABLET PO SCH ×4 (06:08→20:58)
[2018-10-02] MEDS: PANTOPRAZOLE 20MG TABLET PO SCH (06:08)
[2018-10-02] MEDS: METOPROLOL TARTRATE 25 MG TABLET PO SCH ×2 (06:09→17:19)
[2018-10-02] MEDS: LEVOTHYROXINE 50 MCG TABLET PO SCH (06:09)
[2018-10-02] MEDS: FLUTICASONE NASAL SPRAY 16GM NAS SCH ×2 (06:20→20:57)
[2018-10-02 07:44] VITALS: BP 115/79
[2018-10-02] MEDS: BACLOFEN 10 MG TABLET PO SCH ×2 (09:45→20:58)
[2018-10-02] MEDS: DOCUSATE 100 MG CAPSULE PO SCH ×2 (09:46→20:58)
[2018-10-02] MEDS: THIAMINE 100MG TABLET PO SCH (09:46)
[2018-10-02] MEDS: TAMSULOSIN 0.4 MG CAP.ER.24H PO SCH (09:46)
[2018-10-02] MEDS: MAGNESIUM OXIDE 400 MG TABLET PO SCH ×2 (09:46→20:58)
[2018-10-02] MEDS: POLYETHYLENE GLYCOL 17 GM PACKET PO SCH ×3 (09:47→20:57)
[2018-10-02] MEDS: ENOXAPARIN 40 MG/0.4 ML SQ SCH (09:47)
[2018-10-02] MEDS ORDERED: POLY17PO5 PO ×2 (10:08)
[2018-10-02] MEDS ORDERED: Fentanyl Remove Patch XX (10:08)
[2018-10-02] MEDS ORDERED: MAGN400T50 PO (10:08)
[2018-10-02] MEDS ORDERED: NAPH15DR66 EACHEYE (10:08)
[2018-10-02] MEDS ORDERED: FENT1PAT76 TD (10:08)
[2018-10-02] MEDS ORDERED: BACL-19 PO ×2 (10:08)
[2018-10-02] MEDS ORDERED: FLUT16SP NAS (10:08)
[2018-10-02] MEDS ORDERED: LIDO700A20 TD (10:08)
[2018-10-02] MEDS ORDERED: TAMS-11 PO (10:08)
[2018-10-02] MEDS ORDERED: METO25TA35 PO (10:08)
[2018-10-02] MEDS ORDERED: OXYC5TAB3 PO (10:08)
[2018-10-02] MEDS ORDERED: ENOX40SY4 SQ (10:08)
[2018-10-02] MEDS ORDERED: QUET25TA7 PO (10:08)
[2018-10-02] MEDS ORDERED: LEVO50TA PO (10:08)
[2018-10-02] MEDS ORDERED: DOCU-131 PO (10:08)
[2018-10-02] MEDS ORDERED: MORP4VIA IVPush (10:08)
[2018-10-02] MEDS ORDERED: LORA2VIA6 IVPush (10:08)
[2018-10-02] MEDS ORDERED: ONDA4VIA8 IVPush (10:08)
[2018-10-02] MEDS ORDERED: MAGN296S9 PO (10:08)
[2018-10-02] MEDS ORDERED: PANT20TA3 PO (10:08)
[2018-10-02] MEDS ORDERED: IBUP-1484 PO (10:08)
[2018-10-02] MEDS ORDERED: ACID1TAB7 PO (10:08)
[2018-10-02] MEDS ORDERED: THIA100T67 PO (10:08)
[2018-10-02] MEDS: LORazepam 2 MG/ML, 1ML IVPush PRN ×2 (12:03→20:59)
[2018-10-02 14:34] VITALS: BP 96/64
[2018-10-02 17:37] VITALS: BP 110/77
[2018-10-02] MEDS ORDERED: morphine SULFATE 10 MG/ML, 1ML ONE (18:18)
[2018-10-02] MEDS: morphine SULFATE 10 MG/ML, 1ML IVPush PRN (18:20)
[2018-10-02 19:12] VITALS: BP 118/82
[2018-10-02] MEDS: QUETIAPINE 25MG TABLET PO SCH (20:59)
[2018-10-03] VITALS (12 sets, daily range): BP systolic 60–119; BP diastolic 35–83
[2018-10-03] MEDS: morphine SULFATE 10 MG/ML, 1ML IVPush PRN ×3 (00:11→07:06)
[2018-10-03] MEDS: OXYcodone IR 5MG TABLET PO PRN ×2 (00:11→23:30)
[2018-10-03] MEDS: LORazepam 2 MG/ML, 1ML IVPush PRN (05:46)
[2018-10-03] MEDS: METOPROLOL TARTRATE 25 MG TABLET PO SCH ×2 (05:46→17:58)
[2018-10-03] MEDS: PANTOPRAZOLE 20MG TABLET PO SCH (05:46)
[2018-10-03] MEDS: LACTOBACILLUS CHEW TABLET PO SCH ×4 (05:46→20:42)
[2018-10-03] MEDS: LEVOTHYROXINE 50 MCG TABLET PO SCH (05:46)
[2018-10-03] MEDS ORDERED: SODIUM CHLORIDE 0.9% 1,000 ML IVBOLUS ONE (09:00)
[2018-10-03] MEDS: FLUTICASONE NASAL SPRAY 16GM NAS SCH ×2 (09:00→20:42)
[2018-10-03] MEDS: POLYETHYLENE GLYCOL 17 GM PACKET PO SCH ×2 (10:17→15:57)
[2018-10-03] MEDS: DOCUSATE 100 MG CAPSULE PO SCH ×2 (10:18→20:42)
[2018-10-03] MEDS: THIAMINE 100MG TABLET PO SCH (10:18)
[2018-10-03] MEDS: ENOXAPARIN 40 MG/0.4 ML SQ SCH (10:18)
[2018-10-03] MEDS: BACLOFEN 10 MG TABLET PO SCH ×2 (10:18→20:43)
[2018-10-03] MEDS: MAGNESIUM OXIDE 400 MG TABLET PO SCH ×2 (10:24→20:42)
[2018-10-03] MEDS: IBUPROFEN 200 MG TABLET PO PRN (15:57)
[2018-10-03] MEDS: GABAPENTIN 300 MG CAPSULE PO SCH ×2 (15:57→20:42)
[2018-10-03] MEDS: ACYCLOVIR 800 MG TABLET PO SCH ×2 (17:57→23:20)
[2018-10-03] MEDS: SODIUM CHLORIDE 0.9% 1,000 ML IV SCH (18:04)
[2018-10-03] MEDS: QUETIAPINE 25MG TABLET PO SCH (20:43)
[2018-10-04 03:00] VITALS: BP 112/77
[2018-10-04] MEDS: ACYCLOVIR 800 MG TABLET PO SCH ×6 (04:03→21:49)
[2018-10-04] MEDS: OXYcodone IR 5MG TABLET PO PRN ×3 (06:11→21:49)
[2018-10-04] MEDS: LACTOBACILLUS CHEW TABLET PO SCH ×4 (06:11→21:48)
[2018-10-04] MEDS: LEVOTHYROXINE 50 MCG TABLET PO SCH (06:11)
[2018-10-04] MEDS: PANTOPRAZOLE 20MG TABLET PO SCH (06:11)
[2018-10-04] MEDS: METOPROLOL TARTRATE 25 MG TABLET PO SCH ×2 (06:12→18:34)
[2018-10-04] MEDS: SODIUM CHLORIDE 0.9% 1,000 ML IV SCH (06:16)
[2018-10-04 06:54] LABS: CREATININE 0.62 mg/dL (0.7-1.3)
[2018-10-04] MEDS: FENTANYL REMOVE PATCH NOTE XX SCH (08:30)
[2018-10-04] MEDS ORDERED: FENTANYL 50 MCG PATCH TD SCH (08:30)
[2018-10-04] MEDS: DOCUSATE 100 MG CAPSULE PO SCH ×2 (08:31→21:49)
[2018-10-04] MEDS: MAGNESIUM OXIDE 400 MG TABLET PO SCH ×2 (08:31→21:48)
[2018-10-04] MEDS: GABAPENTIN 300 MG CAPSULE PO SCH ×3 (08:31→21:48)
[2018-10-04] MEDS: ENOXAPARIN 40 MG/0.4 ML SQ SCH (08:31)
[2018-10-04] MEDS: BACLOFEN 10 MG TABLET PO SCH ×2 (08:31→21:49)
[2018-10-04] MEDS: THIAMINE 100MG TABLET PO SCH (08:31)
[2018-10-04] MEDS: LORazepam 2 MG/ML, 1ML IVPush PRN ×2 (08:32→18:33)
[2018-10-04] MEDS: FLUTICASONE NASAL SPRAY 16GM NAS SCH ×2 (09:00→21:48)
[2018-10-04] MEDS: IBUPROFEN 200 MG TABLET PO PRN (11:21)
[2018-10-04 13:24] VITALS: BP 132/75
[2018-10-04] MEDS: OxyconTIN ER 10 MG TAB.ER PO SCH ×2 (14:08→23:51)
[2018-10-04 20:29] VITALS: BP 122/77
[2018-10-04] MEDS: QUETIAPINE 25MG TABLET PO SCH (21:55)
[2018-10-05] VITALS: BP 123/81
[2018-10-05] MEDS: ACYCLOVIR 800 MG TABLET PO SCH ×5 (06:08→20:59)
[2018-10-05] MEDS: LORazepam 2 MG/ML, 1ML IVPush PRN (06:08)
[2018-10-05] MEDS: LEVOTHYROXINE 50 MCG TABLET PO SCH (06:09)
[2018-10-05] MEDS: LACTOBACILLUS CHEW TABLET PO SCH ×4 (06:10→21:00)
[2018-10-05] MEDS: METOPROLOL TARTRATE 25 MG TABLET PO SCH ×2 (06:10→18:28)
[2018-10-05] MEDS: PANTOPRAZOLE 20MG TABLET PO SCH (06:10)
[2018-10-05 06:16] VITALS: BP 117/81
[2018-10-05] MEDS: MAGNESIUM OXIDE 400 MG TABLET PO SCH ×2 (09:05→21:00)
[2018-10-05] MEDS: DOCUSATE 100 MG CAPSULE PO SCH ×2 (09:05→21:00)
[2018-10-05] MEDS: BACLOFEN 10 MG TABLET PO SCH ×2 (09:05→21:00)
[2018-10-05] MEDS: THIAMINE 100MG TABLET PO SCH (09:05)
[2018-10-05] MEDS: ENOXAPARIN 40 MG/0.4 ML SQ SCH (09:06)
[2018-10-05] MEDS: FLUTICASONE NASAL SPRAY 16GM NAS SCH ×2 (09:06→21:00)
[2018-10-05] MEDS: GABAPENTIN 300 MG CAPSULE PO SCH ×3 (09:06→21:00)
[2018-10-05] MEDS: OXYcodone IR 5MG TABLET PO PRN ×2 (09:06→16:02)
[2018-10-05] MEDS: IBUPROFEN 200 MG TABLET PO PRN (09:07)
[2018-10-05] MEDS: OxyconTIN ER 10 MG TAB.ER PO SCH ×2 (10:29→23:24)
[2018-10-05 14:08] VITALS: BP 107/74
[2018-10-05 20:24] VITALS: BP 107/73
[2018-10-05] MEDS: QUETIAPINE 25MG TABLET PO SCH (20:59)
[2018-10-06] VITALS: BP 132/80
[2018-10-06] MEDS: OXYcodone IR 5MG TABLET PO PRN ×3 (03:48→15:44)
[2018-10-06] MEDS: LORazepam 2 MG/ML, 1ML IVPush PRN ×3 (05:31→18:39)
[2018-10-06] MEDS: PANTOPRAZOLE 20MG TABLET PO SCH (08:00)
[2018-10-06 08:33] VITALS: BP 112/83
[2018-10-06] MEDS: ACYCLOVIR 800 MG TABLET PO SCH ×5 (10:00→21:13)
[2018-10-06] MEDS: ENOXAPARIN 40 MG/0.4 ML SQ SCH (10:21)
[2018-10-06] MEDS: GABAPENTIN 300 MG CAPSULE PO SCH ×3 (10:21→21:12)
[2018-10-06] MEDS: THIAMINE 100MG TABLET PO SCH (10:22)
[2018-10-06] MEDS: DOCUSATE 100 MG CAPSULE PO SCH ×2 (10:22→21:12)
[2018-10-06] MEDS: MULTIVITAMINS/MINERALS TABLET PO SCH (10:22)
[2018-10-06] MEDS: BACLOFEN 10 MG TABLET PO SCH ×2 (10:22→21:12)
[2018-10-06] MEDS: LACTOBACILLUS CHEW TABLET PO SCH ×4 (10:22→21:12)
[2018-10-06] MEDS: OxyconTIN ER 10 MG TAB.ER PO SCH ×2 (10:23→23:15)
[2018-10-06] MEDS: FLUTICASONE NASAL SPRAY 16GM NAS SCH ×2 (10:23→21:20)
[2018-10-06] MEDS: METOPROLOL TARTRATE 25 MG TABLET PO SCH ×2 (11:54→18:40)
[2018-10-06] MEDS: LEVOTHYROXINE 50 MCG TABLET PO SCH (11:54)
[2018-10-06 12:24] VITALS: BP 103/72
[2018-10-06] MEDS: IBUPROFEN 200 MG TABLET PO PRN (18:39)
[2018-10-06 20:11] VITALS: BP 98/68
[2018-10-06] MEDS: QUETIAPINE 25MG TABLET PO SCH (21:13)
[2018-10-06 22:14] VITALS: BP 105/80
[2018-10-07] MEDS ORDERED: OxyconTIN ER 10 MG TAB.ER PO SCH
[2018-10-07 01:57] VITALS: BP 103/70
[2018-10-07 05:30] LABS: CREATININE 0.76 mg/dL (0.7-1.3)
[2018-10-07 06:51] VITALS: BP 120/88
[2018-10-07] MEDS: MULTIVITAMINS/MINERALS TABLET PO SCH (07:49)
[2018-10-07] MEDS: BACLOFEN 10 MG TABLET PO SCH ×2 (07:49→20:47)
[2018-10-07] MEDS: FLUTICASONE NASAL SPRAY 16GM NAS SCH ×2 (07:49→20:48)
[2018-10-07] MEDS: GABAPENTIN 300 MG CAPSULE PO SCH ×3 (07:50→20:47)
[2018-10-07] MEDS: METOPROLOL TARTRATE 25 MG TABLET PO SCH ×2 (07:50→17:37)
[2018-10-07] MEDS: DOCUSATE 100 MG CAPSULE PO SCH ×2 (07:50→20:48)
[2018-10-07] MEDS: OXYcodone IR 5MG TABLET PO PRN ×2 (07:50→14:43)
[2018-10-07] MEDS: ACYCLOVIR 800 MG TABLET PO SCH ×5 (07:50→20:47)
[2018-10-07] MEDS: PANTOPRAZOLE 20MG TABLET PO SCH (07:50)
[2018-10-07] MEDS: LACTOBACILLUS CHEW TABLET PO SCH ×4 (07:50→20:47)
[2018-10-07] MEDS: POLYETHYLENE GLYCOL 17 GM PACKET PO PRN (07:51)
[2018-10-07] MEDS: LEVOTHYROXINE 50 MCG TABLET PO SCH (07:51)
[2018-10-07] MEDS: ENOXAPARIN 40 MG/0.4 ML SQ SCH (07:51)
[2018-10-07] MEDS: FENTANYL REMOVE PATCH NOTE XX SCH (07:55)
[2018-10-07] MEDS: THIAMINE 100MG TABLET PO SCH (10:24)
[2018-10-07] MEDS: OxyconTIN ER 10 MG TAB.ER PO SCH ×2 (10:25→21:53)
[2018-10-07] MEDS: IBUPROFEN 200 MG TABLET PO PRN (11:53)
[2018-10-07] MEDS: LORazepam 2 MG/ML, 1ML IVPush PRN ×2 (11:53→22:53)
[2018-10-07 14:11] VITALS: BP 91/60
[2018-10-07 19:07] VITALS: BP 94/65
[2018-10-07] MEDS: QUETIAPINE 25MG TABLET PO SCH (20:47)
[2018-10-07 21:49] VITALS: BP 113/79
[2018-10-08 02:56] VITALS: BP 106/75
[2018-10-08] MEDS: OXYcodone IR 5MG TABLET PO PRN ×2 (07:26→13:04)
[2018-10-08] MEDS: ACYCLOVIR 800 MG TABLET PO SCH ×2 (08:00→09:56)
[2018-10-08] MEDS: GABAPENTIN 300 MG CAPSULE PO SCH (09:00)
[2018-10-08] MEDS: FLUTICASONE NASAL SPRAY 16GM NAS SCH (09:00)
[2018-10-08] MEDS: THIAMINE 100MG TABLET PO SCH (09:00)
[2018-10-08] MEDS: BACLOFEN 10 MG TABLET PO SCH (09:00)
[2018-10-08] MEDS: MULTIVITAMINS/MINERALS TABLET PO SCH (09:00)
[2018-10-08] MEDS: PANTOPRAZOLE 20MG TABLET PO SCH (09:00)
[2018-10-08] MEDS: DOCUSATE 100 MG CAPSULE PO SCH (09:00)
[2018-10-08] MEDS: METOPROLOL TARTRATE 25 MG TABLET PO SCH (09:00)
[2018-10-08] MEDS: LACTOBACILLUS CHEW TABLET PO SCH ×2 (09:00→10:16)
[2018-10-08] MEDS: LEVOTHYROXINE 50 MCG TABLET PO SCH (09:01)
[2018-10-08] MEDS: ENOXAPARIN 40 MG/0.4 ML SQ SCH (09:02)
[2018-10-08 09:04] VITALS: BP 108/78
[2018-10-08] MEDS: OxyconTIN ER 10 MG TAB.ER PO SCH (10:17)
[2018-10-08] MEDS: LORazepam 2 MG/ML, 1ML IVPush PRN (10:36)
[2018-10-08] MEDS ORDERED: MULT-484 PO (11:13)
[2018-10-08] MEDS ORDERED: BISA10SU65 PR (11:13)
[2018-10-08] MEDS ORDERED: TRAM50TA2 PO (11:13)
[2018-10-08] MEDS ORDERED: OXYC10TA47 PO (11:13)
[2018-10-08] MEDS ORDERED: GABA300C10 PO (11:13)
[2018-10-08] MEDS ORDERED: QUET25TA7 PO (11:13)
[2018-10-08] MEDS ORDERED: ACYC-57 PO (11:13)
[2018-10-08] MEDS ORDERED: LORA2VIA6 IVPush (11:13)
[2018-10-08] MEDS ORDERED: LORazepam 2 MG/ML, 1ML IVPush ONE (12:30)
== END 2018-10-08 14:15 | disposition short-term general hospital (02) | DRG 97 ==
LOC: 3NE 22:21
PROVIDERS: ADMIT Internal Medicine; ATTEND Internal Medicine
PROC: 0T9B70Z Drainage of Bladder with Drainage Device, Via Natural or Artificial Opening (ICD-10-PCS; principal; 2018-08-26)
DX: A86 Unspecified viral encephalitis (principal); E43 Unspecified severe protein-calorie malnutrition; F03.91 Unspecified dementia, unspecified severity, with behavioral disturbance; G93.40 Encephalopathy, unspecified; N39.0 Urinary tract infection, site not specified; G70.9 Myoneural disorder, unspecified; B95.7 Other staphylococcus as the cause of diseases classified elsewhere; B02.9 Zoster without complications; D75.89 Other specified diseases of blood and blood-forming organs; E03.9 Hypothyroidism, unspecified; E78.5 Hyperlipidemia, unspecified; E83.42 Hypomagnesemia; G24.9 Dystonia, unspecified; G89.29 Other chronic pain; I11.0 Hypertensive heart disease with heart failure; K59.09 Other constipation; L40.50 Arthropathic psoriasis, unspecified; M06.9 Rheumatoid arthritis, unspecified; G47.00 Insomnia, unspecified; M54.9 Dorsalgia, unspecified; Z66 Do not resuscitate; Z79.899 Other long term (current) drug therapy; Z82.3 Family history of stroke; Z82.49 Family history of ischemic heart disease and other diseases of the circulatory system; Z86.61 Personal history of infections of the central nervous system; Z68.20 Body mass index [BMI] 20.0-20.9, adult; Z88.0 Allergy status to penicillin; Z88.8 Allergy status to other drugs, medicaments and biological substances
CPT/HCPCS: 36415; 70544; 74230; 80048; 80053; 81001; 82040; 82565; 82607; 82746; 83735; 84100; 84439; 84443; 84481; 85025; 85651; 86140; 86592; 87040; 87077; 87086; 87186; 87255; 93005; 93308; 93970; 95819; G0378; J0696; J1170; J1561; J1650; J1885; J2405; J2930; J3486; 92523-GN; J2060; J2270; J3475; J3480; J7030